=== PATIENT | female | born 2000 | race Caucasian/White ===

== ENCOUNTER 2023-11-04 12:44 | Outpatient (OUT) | payer OTHER, SELFPAY | END 2023-11-04 12:45 | disposition home or self-care (01) | PROVIDERS: PCP Nurse Practitioner Family; Visit Provider Nurse Practitioner Family | DX: R55 Syncope and collapse (principal) | CPT/HCPCS: 93242 ==

== ENCOUNTER 2024-01-26 08:59 | Outpatient (OUT) | payer OTHER, SELFPAY ==
--- NOTE | 2024-01-26 09:04 | CA_ITS ---
Patient Name: KEIKO WHITE MR#: [id number] : 2000 Exam Date: 01/26/2024 Ordering Doctor: ITZ WATERMAN M.D. ECHOCARDIOGRAM REPORT PROCEDURE: CA ECHO DOPPLER COMPLETE INDICATIONS: Palpitations, syncope COMPARISON: None. DESCRIPTION: COMPLETE ECHOCARDIOGRAM Real-time transthoracic echocardiography with 2D, M-mode, spectral and color flow Doppler performed. QUALITY: Technical quality was good. LEFT VENTRICLE: Normal chamber size. Normal left ventricular wall thickness. Global left ventricular systolic function is at the lower limits of normal. Increased trabeculations seen in the apex of the left ventricle. LV EF: Estimated left ventricular ejection fraction is 50-55 % DIASTOLIC: Normal diastolic function. ATRIAL SEPTUM: Appears intact. LEFT ATRIUM: Normal chamber size. RIGHT ATRIUM: Normal chamber size. RIGHT VENTRICLE: Normal chamber size. Normal right ventricular systolic function. TRICUSPID VALVE: Normal mobility and thickness. No stenosis with trivial regurgitation. No evidence of pulmonary hypertension. RVSP 26 mmHg MITRAL VALVE: Normal mobility and thickness. No evidence of mitral valve stenosis. There is no mitral annular calcification. Trivial mitral regurgitation. AORTIC VALVE: Normal trileaflet appearance. No visible sclerosis. Normal leaflet mobility. No evidence of aortic valve stenosis. AORTIC ROOT: Normal diameter and appearance. PULMONIC VALVE: Normal thickness and mobility. Normal with No regurgitation. PERICARDIUM: No evidence of pericardial effusion. IVC: Collapses with inspirations. Mildly dilated measuring 2.2 cm. PLEURA: CONCLUSION: 1. The left ventricle is normal in size with normal wall thickness. Systolic function appears to be at the lower limits of normal with LVEF estimated at 50 to 55%. Increased trabeculations are seen in the apex of the left ventricle. 2. Right ventricular size and systolic function. 3. No significant valvular dysfunction. 4. Normal diastolic function. 5. A cardiac MRI is recommended for further investigation. Adult Echocardiography Procedure Report Left Ventricle LVEDD (3.7 - 5.6 cm): 4.11 cm LVESD (2.2 - 4.0 cm): 2.97 cm LVIVS thickness (0.6 - 1.2 cm): 0.60 cm LVPW thickness (0.5 - 1.0 cm): 0.54 cm e': 0.20 m/s E - e': 3.71 LVOT Max Gradient: 2.26 mm[Hg] LVOT Area (cm2): 0.75 m/s Peak Velocity (LVOT): 0.75 m/s Mean Velocity (LVOT): 0.53 m/s LVOT Diameter 1.69 cm Left Ventricular Ejection Fraction: 50-55 % Left Atrium LA Volume Index (2D A2C): 20.65 ml/m2 Left Atrium Systolic Dimension: 2.22 cm Mitral Valve MV E to A Ratio: 1.69 Mitral Valve A-Wave Peak Velocity: 0.45 m/s Mitral Valve E-Wave Peak Velocity: 0.76 m/s Right Ventricle RV Internal Diastolic Dimension: 2.54 cm Aorta AO Root Diam: 2.08 cm Ascending Ao Diam: 1.86 cm Aortic Valve AoV Area (Peak Amarjit): 1.54 cm2, 1.54 cm2 AoV Area (VTI): 1.52 cm2, 1.52 cm2 Peak Velocity(Antegrade Flow): 1.09 m/s Peak Gradient(Antegrade Flow): 4.74 mm[Hg] Mean Velocity(Antegrade Flow): 0.77 m/s Mean Gradient(Antegrade Flow): 2.71 mm[Hg] Velocity Time Integral: 24.16 cm Tricuspid Valve Peak Velocity (Regurgitant Flow): 2.85 m/s, 1.87 m/s, 2.10 m/s Pulmonic Valve Peak Velocity: 0.70 m/s Peak Gradient: 1.93 mm[Hg] Right Atrium Right Atrium Systolic Pressure: 18.99 ml, 18.99 ml Dictated by: Dionisio Varma M.D. on 01/27/2024 at 10:21 Approved by: Dionisio Varma M.D. on 01/27/2024 at 10:27
--- OUTSIDE RECORDS SUMMARY | 2024-01-26 09:21 | XMS_ITS | CCD ---
Author Organization [facility] Care Team Providers Care Cement Handler Name Role Phone Vanessa Mckeon Unavailable TIANA, DR ARELLANO Attending Unavailable TIANA, DR ARELLANO Consulting Unavailable TIANA, DR ARELLANO Admitting Unavailable REQUEST, NONE LISTED Primary Care Unavaila alessandro OTOOLE, DR RON Shaikh Consulting Unavailable TIANA, DR ARELLANO Consulting Unavailable TIANA, DR ARELLANO Admitting Unavailable REQUEST, DR WEN LISTED Primary Care Unavaila alessandro MONTIEL, DR ARELLANO Attending Unavailable XIANG, DR RON Shaikh Consulting Unavailable ASHISH EISENBERG Referring Unavailable SERVICES, [facility] Primary Care ALEIDA Crump Attending Unavailable Allergies Allergy Classification Reported Allergen(s) Allergy Type Date of Onset Reaction(s) Facility (1 source) Melatonin; Translations: [MELATONIN] Drug Allergy 11-07-2021 [facility] Medications Current Medications Medication Drug Class(es) Dates Sig (Normalized) Sig (Original) predniSONE 20 mg oral tablet (1 source) Start: 08-15-2021 take 1 tablet by mouth every twelve hours predniSONE 20 MG 1 tablet Orally 2 times a day for 5 day(s) Aug, Active Completed/Discontinued Medications Medication Drug Class(es) Dates Sig (Normalized) Sig (Original) ondansetron 4 mg disintegrating oral tablet (1 source) Serotonin-3 Receptor Antagonist Start: 01-03-2020 take 1 tablet by mouth every eight hours as needed Ondansetron 4 MG 1 tablet on the tongue and allow to dissolve Orally every 8 hours as needed for 7 days Dec, Not-Taking triamcinolone acetonide 40 mg/ml injectable suspension (1 source) Corticosteroid Start: 08-15-2021 Kenalog-40 Aug, 40 mg Problems Active Problems Problem Classification Problem Date Documented Date Episodic/Chronic Abdominal pain (4 sources) Pelvic and perineal pain; Translations: [PELVIC AND PERINEAL PAIN] Onset: 11-08-2021 Episodic Cardiac dysrhythmias (1 source) Palpitations; Translations: [Palpitations] Onset: 07-17-2023 Episodic Contraceptive and procreative management (1 source) Presence of (intrauterine) contraceptive device; Translations: [PRESENCE IU CONTRACEPT DEVICE] Onset: 11-09-2021 Episodic Disorders usually diagnosed in infancy, childhood, or adolescence (1 source) Tic disorder; Translations: [Tic disorder, unspecified] Chronic Menstrual disorders (4 sources) Irregular menstruation, unspecified; Translations: [IRREGULAR MENSTRUATION UNSPECIFIED] Onset: 11-01-2021 Chronic Other nutritional; endocrine; and metabolic disorders (1 source) Adult failure to thrive; Translations: [Adult failure to thrive] Onset: 07-17-2023 Episodic Other nutritional; endocrine; and metabolic disorders (1 source) Underweight; Translations: [Underweight] Onset: 07-17-2023 Episodic Syncope (1 source) Syncope and collapse; Translations: [Syncope and collapse] Onset: 07-17-2023 Episodic Past or Other Problems Problem Classification Problem Date Documented Da te Episodic/Chronic Allergic reactions (1 source) Allergic contact dermatitis due to plants, except food Onset: 08-15-2021 Resolved: 08-15-2021 Episodic Results Test Name Value Interpretation Reference Range Facility Office Visiton 12-26-2023 Follow-up visit [id number] Alexis Soria 2000 F Date Provider Department Center 12/26/2023 Benigno-ALEIDA BRUMFIELD CRISTIANA Durbin [facility] Family History Problem Relation Age of Onset No Known Problems Father Family Status - Relation Status Age at Father Level of Service:06145 MI OFFICE/OUTPATIENT NEW MODERATE MDM 45 MINUTES Normal [facility] .Thyroglobulin by IMAon 09-14 Thyroglobulin [Mass/Vol] 38.3 ng/mL Invalid Interpretation Code 1.5-38.[address] [facility] Comment on above: Result Comment: Acco rding to the National Academy of Clinical Biochemistry, the reference interval for Thyroglobulin (TG) should be related to euthyroid patients and not for patients who underwent thyroidectomy. TG reference intervals for these patients depend on the residual mass of the thyroid tissue left after surgery. Establishing a post-operative baseline is recommended. The assay limit of quantitation is 0.1 ng/mL Thyroglobulin measured by [employer] Immunometric Assay Performed at: [address] [id number] PhD Terry Lopez Performed By: #### 7 [id number] #### [facility] [address] [place] [address] Estradiolon 09-26-2023 E2 [Mass/Vol] 108.0 pg/mL Invalid Interpretation Code [facility] Comment on above: Result Comment: Adul t Female Range Follicular phase 12.5 - 166.0 Ovulation phase 85.8 - 498.0 Luteal phase 43.8 - 211.0 Postmenopausal <6.0 - 54.7 1st trimester 215.0 - >4300.0 Shikha ECLIA methodology Performed at: [address] [id number] PhD Terry Lopez Performed By: #### 2 [id number] #### [facility] [address] [place] [address] FSH and LHon 09-26-2023 Follitropin Qn 3.1 m[IU]/mL Invalid Interpretation Code [facility] Comment on above: Result Comment: Adul t Female Range Follicular phase 3.5 - 12.5 Ovulation phase 4.7 - 21.5 Luteal phase 1.7 - 7.7 Postmenopausal 25.8 - 134.8 Performed at: [address] [id number] PhD Terry Lopez Performed By: #### 1 [id number] #### [facility] [address] [place] [address] Lutropin Qn 1.6 m[IU]/mL Invalid Interpretation Code [facility] Comment on above: Result Comment: Adul t Female Range Follicular phase 2.4 - 12.6 Ovulation phase 14.0 - 95.6 Luteal phase 1.0 - 11.4 Postmenopausal 7.7 - 58.5 Performed By: #### 1 [id number] #### [facility] [address] [place] [address] T3 Totalon 09-26-2023 T3 [Mass/Vol] 98 ng/dL Invalid Interpretation Code 71-[address] [facility] Comment on above: Result Comment: Perf ormed at: [employer] [id number] PhD Terry Lopez Performed By: #### 1 [id number] #### [facility] [address] [place] [address] TgAb+Thyroglobulinon 024 Thyroglobulin Ab Qn [IU]/mL Invalid Interpretation Code 0.0-0.[address] [facility] Comment on above: Result Comment: Thyr oglobulin Antibody measured by [employer] Methodology It should be noted that the presence of thyroglobulin antibodies may not be pathogenic nor diagnostic, especially at very low levels. The assay ambulance operations supervisor has found that four percent of individuals without evidence of thyroid disease or autoimmunity will have positive TgAb levels up to 4 IU/mL. Performed at: [employer] [address] [id number] PhD Terry Lopez Performed By: #### 7 [id number] #### [facility] [address] [place] [address] Thyroid Perox.tpo Abon 09-25 TPO Ab Qn [IU]/mL Invalid Interpretation Code 0-[address] [facility] Comment on above: Result Comment: Perf ormed at: [employer] [id number] PhD Terry Lopez Performed By: #### 1 [id number] #### [facility] [address] [place] [address] Thyrotropin Receptor Antibod y, Serumon 09-26-2023 TSH receptor Ab Qn (S) <1.10 Invalid Interpretation Code 0.00-1.[address] [facility] Comment on above: Result Comment: Perf ormed at: [address] [id number] MD Sunny Cottrell Performed By: #### 1 [id number] #### [facility] [address] [place] [address] C REACTIVE PROTEINon 024 CRP [Mass/Vol] mg/L Normal 0.000-0.744 [facility] Comment on above: Performed By: #### C BCA, CMP, 1987-07, THYR, 3052-08, 2131-11, HA1C #### [facility] ([id number]) [address], [address] [place] [address] CBC AND AUTO DIFFon 07-17-19 24 ABSOLUTE BASOPHIL 0.0 X10E9/L Normal 0.0-0.2 [facility] Comment on above: Performed By: #### C BCA, CMP, 1987-07, THYR, 3052-08, 2131-11, HA1C #### [facility] ([id number]) [address], [address] [place] [address] ABSOLUTE NEUTROPHIL 1.7 X10E9/L Normal 1.5-6.6 [facility] Comment on above: Performed By: #### C BCA, CMP, 1987-07, THYR, 3052-08, 2131-11, HA1C #### [facility] ([id number]) [address], [address] [place] [address] Basophils/100 WBC (Bld) 0.3 % Normal [facility] Comment on above: Performed By: #### C BCA, CMP, 1987-07, THYR, 3052-08, 2131-11, HA1C #### [facility] ([id number]) [address], [address] [place] [address] Eosinophils (Bld) [#/Vol] 0.2 10*3/uL Normal 0.0-0.4 [facility] Comment on above: Performed By: #### C BCA, CMP, 1987-07, THYR, 3052-08, 2131-11, HA1C #### [facility] ([id number]) [address], [address] [place] [address] Eosinophils/100 WBC (Bld) 4.7 % Normal [facility] Comment on above: Performed By: #### C MARGOT MARCOS, 1987-07, THYR, 3052-08, 2131-11, HA1C #### [facility] ([id number]) [address], [facility] [address] [place] [address] Erythrocyte distribution width (RBC) [Ratio] 13.0 % Normal 11.5-15.0 [facility] Comment on above: Performed By: #### C MARGOT MARCOS, 1987-07, THYR, 3052-08, 2131-11, HA1C #### [facility] ([id number]) [address], [facility] [address] [place] [address] Hematocrit (Bld) [Volume fraction] 36.4 % Normal 35-47 [facility] Comment on above: Performed By: #### C MARGOT MARCOS, 1987-07, THYR, 3052-08, 2131-11, HAElizabeth #### [facility] ([id number]) [address], [facility] [address] [place] [address] Hemoglobin (Bld) [Mass/Vol] 12.5 g/dL Normal 11.7-15.5 [facility] Comment on above: Performed By: #### C MARGOT MARCOS, 1987-07, THYR, 3052-08, 2131-11, HAElizabeth #### [facility] ([id number]) [address] [address] [place] [address] Lymphocytes (Bld) [#/Vol] 2.2 10*3/uL Normal 1.0-3.5 [facility] Comment on above: Performed By: #### C PRITI CMP, 1987-07, THYR, 3052-08, 2131-11, HA1C #### [facility] ([id number]) [address] [address] [place] [address] Lymphocytes/100 WBC (Bld) 46.9 % Normal [facility] Comment on above: Performed By: #### C BCA, CMP, 1987-07, THYR, 3052-08, 2131-11, HA1C #### [facility] ([id number]) [address], [address] [place] [address] MCH (RBC) [Entitic mass] 30.3 pg Normal 27-34 [facility] Comment on above: Performed By: #### C BCA, CMP, 1987-07, THYR, 3052-08, 2131-11, HA1C #### [facility] ([id number]) [address], [address] [place] [address] MCHC (RBC) [Mass/Vol] 34.4 g/dL Normal 32-36 [facility] Comment on above: Performed By: #### C PRITI, CMP, 1987-07, THYR, 3052-08, 2131-11, HA1C #### [facility] ([id number]) [address], [address] [place] [address] MCV (RBC) [Entitic vol] 88 fL Normal 80-100 [facility] Comment on above: Performed By: #### C PRITI, CMP, 1987-07, THYR, 3052-08, 2131-11, HAElizabeth #### [facility] ([id number]) [address], [address] [place] [address] Monocytes (Bld) [#/Vol] 0.6 10*3/uL Normal 0-0.9 [facility] Comment on above: Performed By: #### C BCA, CMP, 1987-07, THYR, 3052-08, 2131-11, HA1C #### [facility] ([id number]) [address], [address] [place] [address] Monocytes/100 WBC (Bld) 11.7 % Normal [facility] Comment on above: Performed By: #### C BCA, CMP, 1987-07, THYR, 3052-08, 2131-11, HA1C #### [facility] ([id number]) [address], [address] [place] [address] Neutrophils/100 WBC (Bld) 36.4 % Normal [facility] Comment on above: Performed By: #### C BCA, CMP, 1987-07, THYR, 3052-08, 2131-11, HA1C #### [facility] ([id number]) [address], [address] [place] [address] Platelet mean volume (Bld) [Entitic vol] 9.2 fL Normal 7-12 [facility] Comment on above: Performed By: #### C BCA, CMP, 1987-07, THYR, 3052-08, 2131-11, HA1C #### [facility] ([id number]) [address], [address] [place] [address] Platelets (Bld) [#/Vol] 215 10*3/uL Normal 150-450 [facility] Comment on above: Performed By: #### C BCA, CMP, 1987-07, THYR, 3052-08, 2131-11, HA1C #### [facility] ([id number]) [address], [address] [place] [address] RBC COUNT 4.13 X10E12/L Normal 3.80-5.20 [facility] Comment on above: Performed By: #### C BCA, CMP, 1987-07, THYR, 3052-08, 2131-11, HA1C #### [facility] ([id number]) [address], [address] [place] [address] WBC (Bld) [#/Vol] 4.7 10*3/uL Normal 4.0-11.0 [facility] Comment on above: Performed By: #### C BCA, CMP, 1987-07, THYR, 3052-08, 2131-11, HA1C #### [facility] ([id number]) [address], [address] [place] [address] COMPREHENSIVE METABOLIC PANE Wan 07-17-2023 Albumin [Mass/Vol] 4.6 g/dL Normal 3.2-5.3 [facility] Comment on above: Performed By: #### C BCA, CMP, 1987-07, THYR, 3052-08, 2131-11, HA1C #### [facility] ([id number]) [address], [address] [place] [address] ALP [Catalytic activity/Vol] 44 U/L Normal 39-130 [facility] Comment on above: Performed By: #### C BCA, CMP, 1987-07, THYR, 3052-08, 2131-11, HA1C #### [facility] ([id number]) [address], [address] [place] [address] ALT [Catalytic activity/Vol] 10 U/L Normal 0-31 [facility] Comment on above: Performed By: #### C BCA, CMP, 1987-07, THYR, 3052-08, 2131-11, HA1C #### [facility] ([id number]) [address], [address] [place] [address] Anion gap [Moles/Vol] 10 mmol/L Normal 5-15 [facility] Comment on above: Performed By: #### C BCA, CMP, 1987-07, THYR, 3052-08, 2131-11, HA1C #### [facility] ([id number]) [address], [address] [place] [address] AST [Catalytic activity/Vol] 17 U/L Normal 0-41 [facility] Comment on above: Performed By: #### C BCA, CMP, 1987-07, THYR, 3052-08, 2131-11, HA1C #### [facility] ([id number]) [address], [address] [place] [address] Bilirubin [Mass/Vol] 0.5 mg/dL Normal 0.3-1.2 [facility] Comment on above: Performed By: #### C BCA, CMP, 1987-07, THYR, 3052-08, 2131-11, HA1C #### [facility] ([id number]) [address], [address] [place] [address] Calcium [Mass/Vol] 9.2 mg/dL Normal 8.5-10.5 [facility] Comment on above: Performed By: #### C BCA, CMP, 1987-07, THYR, 3052-08, 2131-11, HA1C #### [facility] ([id number]) [address], [address] [place] [address] Chloride [Moles/Vol] 104 mmol/L Normal 98-109 [facility] Comment on above: Performed By: #### C BCA, CMP, 1987-07, THYR, 3052-08, 2131-11, HA1C #### [facility] ([id number]) [address], [address] [place] [address] CO2 [Moles/Vol] 27 mmol/L Normal 22-32 [facility] Comment on above: Performed By: #### C BCA, CMP, 1987-07, THYR, 3052-08, 2131-11, HA1C #### [facility] ([id number]) [address], [address] [place] [address] Creatinine [Mass/Vol] 0.71 mg/dL Normal 0.40-1.00 [facility] Comment on above: Result Comment: METH OD TRACEABLE TO IDMS STANDARD Performed By: #### C BCA, CMP, 1987-07, THYR, 3052-08, 2131-11, HA1C #### [facility] ([id number]) [address], [address] [place] [address] eGFR (CKD-EPI) NON-RACE DEPENDENT >90 Normal >59 [facility] Comment on above: Result Comment: Reported eGFR is based on the CKD-EPI 2020 equation that does not use a race coefficient. Performed By: #### C PRITI, CMP, 1987-07, THYR, 3052-08, 2131-11, HA1C #### [facility] ([id number]) [address], [address] [place] [address] Glucose [Mass/Vol] 86 mg/dL Normal 65-99 [facility] Comment on above: Performed By: #### C BCA, CMP, 1987-07, THYR, 3052-08, 2131-11, HA1C #### [facility] ([id number]) [address], [address] [place] [address] Potassium [Moles/Vol] 3.9 mmol/L Normal 3.5-5.0 [facility] Comment on above: Performed By: #### C BCA, CMP, 1987-07, THYR, 3052-08, 2131-11, HA1C #### [facility] ([id number]) [address], [address] [place] [address] Protein [Mass/Vol] 7.2 g/dL Normal 6.0-8.0 [facility] Comment on above: Performed By: #### C BCA, CMP, 1987-07, THYR, 3052-08, 2131-11, HA1C #### [facility] ([id number]) [address], [address] [place] [address] Sodium [Moles/Vol] 141 mmol/L Normal 134-146 [facility] Comment on above: Performed By: #### C BCA, CMP, 1987-07, THYR, 3052-08, 2131-11, HA1C #### [facility] ([id number]) [address], [address] [place] [address] Urea nitrogen [Mass/Vol] 12 mg/dL Normal 5-23 [facility] Comment on above: Performed By: #### C BCA, CMP, 1987-07, THYR, 3052-08, 2131-11, HA1C #### [facility] ([id number]) [address], [address] [place] [address] Cortisol [Mass/Vol]on 2023 CORTISOL 21.1 ug/dL Normal [facility] Comment on above: Result Comment: Due to the diurnal variation of cortisol levels in normal subjects, all cortisol measurements should be referenced to the time of day of sample collection. AM Cortisol Age>=6 6.7-22.4 ug/dL PM Cortisol Age>=6 <10 ug/dL Performed By: #### 2 143-6 #### [facility] ([id number]) [address] [place] [address] HGB A1C (GLYCO-HGB)on 2023 Glucose [Mass/Vol] 103 mg/dL Normal [facility] Comment on above: Performed By: #### C MARGOT MARCOS, 1987-07, THYR, 3052-08, 2131-11, HA1C #### [facility] ([id number]) [address], [facility] [address] [place] [address] HbA1c (Bld) [Mass fraction] 5.2 % Normal 4.4-5.6 [facility] Comment on above: Result Comment: NOTE ADA Guidelines Result HgbA1c Normal : less than 5.7 % Prediabetes : 5.7 % to 6.4 % Diabetes : > 6.4 % Use with caution in patients with abnormal hemoglobin variants as the half-life of red blood cells and in vivo glycation rates are affected. Performed By: #### C MARGOT MARCOS, 1987-07, THYR, 3052-08, 2131-11, HA1C #### [facility] ([id number]) [address], [address] [place] [address] Insulin Qnon 07-17-2023 INSULIN 2.76 uIU/mL Normal 1.00-23.00 [facility] Comment on above: Result Comment: Ref. range is for FASTING NON-DIABETIC POPULATION. Performed By: #### 2 0448-7 #### [facility] ([id number]) [address], [address] [place] [address] T3 [Mass/Vol]on 07-17-2023 TOTAL T3 (TT3) 173 ng/dL Normal 87-178 [facility] Comment on above: Performed By: #### C BCA, CMP, 1987-07, THYR, 3052-08, 2131-11, HA1C #### [facility] ([id number]) [address] [place] [address] THYROID PROFILEon 07-17-2023 Free T4 [Mass/Vol] 0.65 ng/dL Normal 0.61-1.60 [facility] Comment on above: Performed By: #### C BCA, CMP, 1987-07, THYR, 3052-08, 2131-11, HA1C #### [facility] ([id number]) [address] [facility] [address] [place] [address] TSH 4.57 uIU/mL Normal 0.49-4.67 [facility] Comment on above: Performed By: #### C BCA, CMP, 1987-07, THYR, 3052-08, 2131-11, HA1C #### [facility] ([id number]) [address], [address] [place] [address] VITAMIN B12on 07-17-2023 Cobalamin (Vitamin B12) [Mass/Vol] 404 pg/mL Normal 180-914 [facility] Comment on above: Performed By: #### C BCA, CMP, 1987-07, THYR, 3052-08, 2131-11, HA1C #### [facility] ([id number]) [address] [facility] [address] [place] [address] US PELVIS TRANSVAGon 022 US PELVIS TRANSVAG EXAMINATION: US PELVIS TRANSVAG HISTORY: Pelvic and perineal pain ; pelvic pain, nausea, vomiting since IUD placement yesterday COMPARISON: Ultrasound pelvis 11/01/2021 TECHNIQUE: Transabdominal and transvaginal sonographic examination. FINDINGS: UTERUS: Normal size and appearance. Uterus size: 8.1 x 3.0 x 4.2 cm ENDOMETRIUM: Thin endometrium with IUD within endometrial cavity. Endometrial thickness: 2 mm RIGHT OVARY: Normal size and appearance. Duplex Doppler demonstrates normal waveform and flow; resistive index 0.5. Ovary size: 2.8 x 1.4 x 2.9 cm LEFT OVARY: Normal size and appearance. Duplex Doppler demonstrates normal waveform and flow; resistive index 0.5. Ovary size: 2.5 x 1.3 x 2.7 cm CUL-DE-SAC: Unremarkable. No significant free fluid. BLADDER: Unremarkable. OTHER: None. IMPRESSION: 1. IUD appears normally positioned within the endometrial cavity. 2. No acute or suspicious findings to account for patient's symptoms. Electronically authenticated by: RON OTOOLE Date: 2021-11-08 18:19 Normal [facility] HCG-BETA SUBUNIT QUANTon hCG,Beta Subunit,Qnt,Serum <1 Normal [facility] Comment on above: Result Comment: Fema le (Non-) 0 - 5 (Postmenopausal) 0 - 8 . Female () Weeks of Gestation 3 6 - 71 4 10 - 750 5 466 - 9985 6 168 - 08054 7 3099 -478228 8 69378 -[phone] 9 89370 -640951 10 80818 -553659 12 60648 -243373 14 31662 - 25250 15 95726 - 96752 16 1242 - 33269 17 6405 - 78297 18 8831 - 29372 Shikha ECLIA methodology Performed By: #### H CGSUB #### [facility] [address] [address] [address] Pam Lam US PELVIS AND TRANSVAGon 08- 19-2022 US PELVIS AND TRANSVAG EXAMINATION: US PELVIS AND TRANSVAG HISTORY: Irregular periods COMPARISON: No relevant comparison available. TECHNIQUE: Transabdominal and transvaginal sonographic examination. FINDINGS: UTERUS: Normal size and appearance. Uterus size: 7.9 x 4.8 x 3.0 cm ENDOMETRIUM: Normal homogeneous appearance. Endometrial thickness: 4 mm RIGHT OVARY: Normal size and appearance. Duplex Doppler demonstrates normal waveform and flow; resistive index 0.5. Ovary size: 2.7 x 2.3 x 1.6 cm LEFT OVARY: Normal size and appearance. Duplex Doppler demonstrates normal waveform and flow; resistive index 0.5. Ovary size: 2.7 x 2.1 x 1.5 cm CUL-DE-SAC: Unremarkable. No significant free fluid. BLADDER: Unremarkable. OTHER: None. IMPRESSION: 1. Normal pelvic ultrasound. Electronically authenticated by: RON OTOOLE Date: 2021-11-02 06:26 Normal [facility] CBC AUTO DIFFon 11-01-2021 BASO # 0.0 103/ul Normal 0.0-0.1 [facility] Comment on above: Performed By: #### C BC #### [facility] [address] [place] [address] Dr. Pam Lam Basophils/100 WBC (Bld) 0.4 % Normal 0.2-2.0 [facility] Comment on above: Performed By: #### C BC #### [facility] [address] [place] [address] Dr. Pam Lam EO # 0.1 103/ul Normal 0.0-0.7 [facility] Comment on above: Performed By: #### C BC #### [facility] [address] [place] [address] Dr. Pam Lam Eosinophils/100 WBC (Bld) 3.1 % Normal 0.9-7.0 [facility] Comment on above: Performed By: #### C BC #### [facility] [address] [place] [address] Dr. Pam Lam Erythrocyte distribution width (RBC) [Ratio] 11.9 % Normal 11.0-15.0 [facility] Comment on above: Performed By: #### C BC #### [facility] [address] [place] [address] Dr. Pam Lam Hematocrit (Bld) [Volume fraction] 37.5 % Normal 36.0-48.0 [facility] Comment on above: Performed By: #### C BC #### [facility] [address] [place] [address] Dr. Pam Lam Hemoglobin (Bld) [Mass/Vol] 12.9 g/dL Normal 12.0-16.0 [facility] Comment on above: Performed By: #### C BC #### [facility] [address] [place] [address] Dr. Pam Lam IG # 0.01 10e3/ul Normal 0.00-0.03 [facility] Comment on above: Performed By: #### C BC #### [facility] [address] [place] [address] Dr. Pam Lam IG % 0.2 % Normal 0.0-0.5 [facility] Comment on above: Performed By: #### C BC #### [facility] [address] [place] [address] Dr. Pam Lam LYMPH # 1.6 103/ul Normal 1.2-3.8 [facility] Comment on above: Performed By: #### C BC #### [facility] [address] [place] [address] Dr. Pam Lam Lymphocytes/100 WBC (Bld) 36.1 % Normal 20.5-60.0 [facility] Comment on above: Performed By: #### C BC #### [facility] [address] [place] [address] Dr. Pam Lam MANUAL DIFF REQ NO Normal [facility] Comment on above: Performed By: #### C BC #### [facility] [address] [place] [address] Dr. Pam Lam MCH (RBC) [Entitic mass] 29.9 pg Normal 26.7-34.0 [facility] Comment on above: Performed By: #### C BC #### [facility] [address] [place] [address] Dr. Pam Lam MCHC (RBC) [Mass/Vol] 34.4 g/dL Normal 29.9-35.2 [facility] Comment on above: Performed By: #### C BC #### [facility] [address] [address] [address] Pam Lam MCV (RBC) [Entitic vol] 86.8 fL Normal 81.0-99.0 [facility] Comment on above: Performed By: #### C BC #### [facility] [address] [place] [address] Dr. Pam Lam MONO # 0.6 103/ul Normal 0.3-0.8 [facility] Comment on above: Performed By: #### C BC #### [facility] [address] [place] [address] Dr. Pam Lam Monocytes/100 WBC (Bld) 13.1 % Critically high 1.7-12.0 [facility] Comment on above: Performed By: #### C BC #### [facility] [address] [place] [address] Dr. Pam Lam NEUT # 2.1 103/ul Normal 1.4-6.5 [facility] Comment on above: Performed By: #### C BC #### [facility] [address] [place] [address] Dr. Pam Lam Neutrophils/100 WBC (Bld) 47.1 % Normal 43.0-75.0 [facility] Comment on above: Performed By: #### C BC #### [facility] [address] [place] [address] Dr. Pam Lam Platelet mean volume (Bld) [Entitic vol] 10.4 fL Normal 9.5-13.5 [facility] Comment on above: Performed By: #### C BC #### [facility] [address] [place] [address] Dr. Pam Lam PLT 186 103/ul Normal 150-450 [facility] Comment on above: Performed By: #### C BC #### [facility] [address] [place] [address] Dr. Pam Lam RBC 4.32 106/ul Normal 4.20-5.40 [facility] Comment on above: Performed By: #### C BC #### [facility] [address] [place] [address] Dr. Pam Lam WBC 4.5 103/ul Normal 4.0-11.0 [facility] Comment on above: Performed By: #### C BC #### [facility] [address] [place] [address] Dr. Pam Lam PROTIMEon 11-01-2021 INR Coag (PPP) [Relative time] 1.07 {INR} Normal [facility] Comment on above: Performed By: #### P T, PTT #### [facility] [address] [place] [address] Dr. Pam Lam INR GUIDELINES SEE BELOW Normal [facility] Comment on above: Result Comment: IRIS RED INR: 2.0 - 3.0 CONDITIONS NOT LISTED BELOW 2.5 - 3.5 FOR PROSTHETIC HEART VALVE REPLACEMENT 2.5 - 3.5 RECURRENT THROMBOSIS Performed By: #### P T, PTT #### [facility] [address] [place] [address] Dr. Pam Lam PT Coag (PPP) [Time] 11.5 s Normal 9.0-11.6 [facility] Comment on above: Performed By: #### P T, PTT #### [facility] [address] [place] [address] Dr. Pam Lam PTTon 11-01-2021 aPTT Coag (Bld) [Time] 29.1 s Normal 22.3-36.2 [facility] Comment on above: Performed By: #### P T, PTT #### [facility] [address] [place] [address] Dr. Pam Lam TSHon 11-01-2021 TSH 1.282 uIU/mL Normal 0.516-4.130 [facility] Comment on above: Performed By: #### T SH #### [facility] [address] [place] [address] Dr. Pam Lam Vital Signs Date Time Vital Sign Value Performing Clinician Facility 08-15-2021 10:45-0400 Body height 157.48 cm Vanessa Linda Other [facility] Other 08-15-2021 10:45-0400 Body mass index (BMI) [Ratio] 15.36 kg/m2 Vanessa Kingmond Other [facility] Other 08-15-2021 10:45-0400 Body temperature 99.6 [degF] Vanessa Kingmond Other [facility] Other 08-15-2021 10:45-0400 Body weight 38.1 kg Vanessa Kingmond Other [facility] Other 08-15-2021 10:45-0400 Respiratory rate 18 /min Vanessa Kingmond Other [facility] Other 08-15-2021 10:45-0400 SaO2% (BldA) [Mass fraction] 98 % Vanessa Linda Other [facility] Other Encounters Encounter Date Encounter Type Care Provider Facility Start: 12-26-2023 End: 12-26-2023 ambulatory [facility] Start: 07-17-2023 End: 07-18-[address] [facility] Start: 11-08-2021 End: 11-09-[address] EILEEN MONTIEL Facility:[facility] Start: 11-01-2021 End: 11-02-[address] EILEEN MONTIEL Facility:[facility] Start: 08-15-2021 End: 08-15-2021 ambulatory Vanessa Mckeon Other [facility] Start: 08-15-2021 Office outpatient visit 15 minutes Vanessa Mckeon [facility] Payers Date Payer Category Payer Unknown [id number] [id number] 2001 Unknown [id number] 2001 Unknown [id number] 1959 Private Health Insurance [id number] 1958 Unknown [id number] Social History Date Type Detail Facility Unknown if ever smoked [facility] Other Sex Assigned At Sex Assigned At Bir th [facility] Other Progress note 12-26-2023 Note Date & Type Note Facility 12-26-2023 Note Cardiology Clinic No te Chief Complaint: Palpitations HPI: Alexis Soria is a 23 y.o. female who has no significant past cardiac history. Patient was referred to cardiology due to symptoms of palpitations and near syncope/syncope. Patient reports that this has been ongoing for years. However, she states that this has worsened recently. Patient reports feeling palpitations, followed by near syncope. She does state that she has syncopized in the past and has hit her head. This has been sometime ago. No recent syncope. Holter monitor was performed and did not demonstrate any sustained arrhythmias. Patient denies any additional cardiac complaints or concerns. Denies any chest pain or shortness of breath. No lower extreme edema, orthopnea, paroxysmal nocturnal dyspnea. No family history of pacemaker or ICD. No family history of sudden cardiac . Patient denies any previous history of CVA, PVD, DM, HTN, Depressed LVEF, and CAD. Patient drinks 1 to 216 ounce sodas per day. She has not noticed any association with of her symptoms with caffeine. She does vape both nicotine and smoke marijuana on occasion. She has not noticed any association between this and her symptoms. She did notice 1 time after drinking several drinks that she felt the palpitations and felt like she was going to pass out. She has not been drinking any alcohol since that time. ROS 10 point ROS is performed and is negative unless otherwise specified in HPI Past Medical History She has no past medical history on file. Surgical History She has no past surgical history on file. Social History She reports that she has never smoked. She uses smokeless tobacco. She reports that she does not drink alcohol. No history on file for drug use. Family History Family History Problem Relation Name Age of Onset No Known Problems Father Medications Current Outpatient Medications on File Prior to Visit Medication Sig Dispense Refill FLUoxetine (PROzac) 10 mg capsule 10 mg. No current facility-administered medications on file prior to visit. Allergies Patient has no known allergies. Physical Exam VITAL SIGNS: BP 105/71 Pulse 78 Ht 1.575 m (5' 2 ) Wt 38.1 kg (84 lb) SpO2 96% BMI 15.36 kg/m??? Constitutional: Well developed, Well nourished, No acute distress, Non-toxic appearance. HENT: Normocephalic, Atraumatic, Bilateral external ears have normal appearance, Nose appears normal, nares are patent. Eyes: PERRLA, EOMI, Conjunctiva normal, No discharge. Neck: Normal range of motion, No tenderness, Supple, No stridor. No cervical lymphadenopathy noted. Cardiovascular: Normal heart rate, Normal rhythm, No murmurs, No rubs, No gallops. Thorax & Lungs: Normal breath sounds, No respiratory distress, No wheezing, No chest tenderness to palpation. Abdomen: Bowel sounds normal, Soft, Nontender, No masses, No pulsatile masses. Skin: Warm, Dry, No erythema, No rash. Back: No tenderness, No CVA tenderness. Extremities: Intact distal pulses, No edema, No tenderness, No cyanosis, No clubbing. Musculoskeletal: Grossly normal strength in extremities Neurologic: Alert & oriented x 3, no gross focal neurological deficits Psychiatric: Affect normal, Judgment normal, Mood normal. EKG results: No results found for this or any previous visit (from the past 4464 hour(s)). Echo results: No echocardiogram results found for the past 12 months Radiology: No image results found. Assessment/Plan: Alexis Soria is a 23 y.o. female with Syncope, unspecified syncope type Palpitations Given history of frequent palpitations, and no episodes during her Holter monitor as per her report, we will proceed with 30-day event monitor to rule out any sustained arrhythmias. Will obtain echocardiogram to assess LVEF, regional wall motion, valvular function, and to rule out any structural abnormalities. Patient instructed to limit caffeine, avoid alcohol intake, and avoid nicotine/marijuana usage. She voices understanding. optimize medical management Aggressive risk factor modification Plan of care discussed with patient. All questions were answered. Patient voices understanding and is agreeable with current plan. Patient was educated on red flag symptoms. Strict return precautions were provided. Patient verbalizes understanding Follow-up in cardiology clinic in 3 months, or sooner as needed Thank you for allowing us to participate in the care of your patient. Please do not hesitate to contact cardiology with any questions or concerns. Aleida Brumfield MD Interventional Cardiology [facility] Evaluation note 08-15-2021 Note Date & Type Note Facility 08-15-2021 Evaluation note Encounter Date Diagnosis Assessment Notes Aug, Poison harriett dermatitis (ICD-10 - L23.7) Drink plenty fluids, get plenty of rest. Take the prednisone as prescribed until gone. Continue to use the calamine lotion and take Benadryl for itching. Wash your bedding and any clothing that you have been wearing for the last couple of days. Follow-up with your family physician if no improvement in 2 to 3 days [facility] Other History general Narrative - Reported Note Date & Type Note Facility History general Narrative - Reported Type Medical History Seasonal allergies Hospitalization History rsv [facility] Other Summary Purpose Family History No Family History Records FoundNo Family History Records FoundNo Family History Records FoundNo Family History Records FoundNo Family History Records FoundNo Family History Records FoundNo Family History Records FoundNo Family History Records FoundNo Family History Records FoundNo Family History Records Found Advance Directives No Advanced Directives Records FoundNo Advanced Directives Records FoundNo Advanced Directives Records FoundNo Advanced Directives Records FoundNo Advanced Directives Records FoundNo Advanced Directives Records FoundNo Advanced Directives Records FoundNo Advanced Directives Records FoundNo Advanced Directives Records FoundNo Advanced Directives Records Found Additional Source Comments REASON FOR VISIT (unrecogniz ed section and content) RASH, POS POISON HARRIETT INFORMATION SOURCE (unrecogn ized section and content) DATE CREATED AUTHOR 2021 [facility] DATE CREATED AUTHOR AUTHOR'S ORGANIZ ATION 08/01/2023 [facility] DATE CREATED AUTHOR AUTHOR'S ORGANIZ ATION 10/02/2023 [facility] DATE CREATED AUTHOR AUTHOR'S ORGANIZ ATION 12/28/2023 [facility] FOR RECORDS PERTAINING TO PATIENTS WHO ARE OR HAVE BEEN ENROLLED IN A CHEMICAL DEPENDENCY/SUBSTANCEABUSE PROGRAM, SOME INFORMATION MAY BE OMITTED. This clinical summary was aggregated from multiple sources. Caution should be exercised in using it in the provision of clinical care. This summary normalizes information from multiple sources, and as a consequence, information in this document may materially change the coding, format and clinical context of patient data. In addition, data may be omitted in some cases. CLINICAL DECISIONS SHOULD BE BASED ON THE PRIMARY CLINICAL RECORDS. [employer] provides no warranty or guarantee of the accuracy or completeness of information in this document.
== END 2024-01-26 09:00 | disposition home or self-care (01) ==
LOC: CARD 08:59
PROVIDERS: PCP Nurse Practitioner Family; Visit Provider Internal Medicine Cardiovascular Disease
DX: R55 Syncope and collapse (principal); R00.2 Palpitations
CPT/HCPCS: 93306

== ENCOUNTER 2024-09-09 22:19 | Emergency (ER) | payer OTHER, SELFPAY ==
--- OUTSIDE RECORDS SUMMARY | 2007-11-19 12:45 | XMS_ITS | Continuity of Care Document ---
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 [address], [place], [id number], [place]. tel:[phone] Family History Family Member Type Diagnosis Age At Onset No Information Payers Payer name Insurance type Covered libertarian ID Authoriza tion(s) [employer] [facility] CI [id number] Social History Type Description Quantity Date Captured Comments Sex Female Smoking Status No Information Chief Complaint And Reason For Visit No Information Reason For Referral Reason For Referral No Information History Of Present Illness Encounter Date Complaint History Of Prese nt Illness No Information Functional Status Date Functional Assessmen t No Information Instructions Date Instruction Additional Infor mation No Information Assessments Type Assessment Date No Information Patient Care Teams Name Effective Dates (start - stop) Status Members No Information
--- OUTSIDE RECORDS SUMMARY | 2024-06-11 05:30 | XMS_ITS ---
Author Organization [facility] Address [address] [place] [address] Care Team Providers Care Oracle Solutions Architect Name Role Phone Rosio Mosher Primary Care Provider REASON FOR VISIT 1 month f/u Encounters Encounter Location Date Provider Diagnosis [address] [place] [address] 06/11/2024 Rosio Mosher Plan Of Treatment No Information Progress Notes * SCOTTY WHITEBHARATOB:2000 (23 yo F)Acc No.[id number]:06/11/2024 Progress Notes Patient: KEIKO KRISHNAMURTHY Provider: Adeline Mosher CNP :2000 A ge:23 Y S ex:Female Date:06/11/2024 Phone: Address:[address] [id number] Subjective: * Chief Complaints: * 1 . 1 month f/u. * Medical History: Objective: * Vitals: Assessment: Plan: * Treatment: * Images: * Electronic signature of BRANDY Monahan on 09/09/2024 at 10:25 PM EDT Sign off status: Pending * Provider: Adeline Mosher CNP Date: 06/11/2024 Generated for Printi ng/Faxing/eTransmitting on: 0 09/09/2024 10:25 PM EDT
[2024-09-09 22:25] VITALS: BP 110/65; PULSE 94; TEMP 37; O2SAT 97; BMI 15.3
--- OUTSIDE RECORDS SUMMARY | 2024-09-09 22:25 | XMS_ITS | Clinical Summary ---
Author Organization [facility] Address [address] [place] [address] Care Team Providers Care Apple Peeler Operator Name Role Phone Rosio Mosher DIRECTOR NETWORK DEVELOPMENT-C Primary Care Provider + Allergies Active Allergy Reactions Criticality Noted Date Comments Melatonin Unknown Low 11/07/2021 Pt states it 'makes her hyper'. Medications FLUoxetine (PROzac) 10 mg capsule 10 mg. 12/04/2023 Active desvenlafaxine (Pristiq) 50 mg 24 hr tablet Take 50 mg by mouth in the morning. 05/14/2024 Active desvenlafaxine succinate (Pristiq) 25 mg 24 hour tablet Take 1 tablet by mouth in the morning. 05/15/2024 Active Encounters Date Type Department Care Team Description 06/29/2024 9:20 AM EDT Office Visit [facility] [address] [place] [address] Sunshine Reed CNP Syncope and collapse (Primary Dx); Palpitations; Vasovagal syncope; Abnormal echocardiogram from Last 3 Months Family History Medical History Relation Name Comments No Known Problems Father Heart disease Maternal Grandfather mini heart attack Relation Name Status Comments Brother Alive Father Maternal Grandfather Mother Alive Sister Alive Social History Tobacco Use Types Packs/Day Years Used Date Smoking Tobacco: Every Day Cigarettes Smokeless Tobacco: Current Tobacco Cessation:Ready to Q uit: Not Asked; Counseling Given: Not Answered Comments:vapes Alcohol Use Standard Drinks/Week Comments Never 0 (1 standard drink = 0.6 oz pur e alcohol) Comments Unknown Sex and Gender Information Value Date Recorded Sex Assigned at Not on file Legal Sex Female 9:08 AM EDT Gender Identity Not on file Sexual Orientation Not on file Last Filed Vital Signs Vital Sign Reading Time Taken Comments Blood Pressure 95/67 06/29/2024 9:22 AM EDT Pulse 89 06/29/2024 9:22 AM EDT Temperature - - Respiratory Rate - - Oxygen Saturation 98% 06/29/2024 9:22 AM EDT Inhaled Oxygen Concentration - - Weight 39 kg (86 lb) 06/29/2024 9:22 AM EDT Height 157.5 cm (5' 2 ) 06/29/2024 9:22 AM EDT Body Mass Index 15.73 06/29/2024 9:22 AM EDT Plan of Treatment Upcoming Encounters Date Type Department Care Team (Late st Contact Info) Description 09/14/2024 11:00 AM EDT Office Visit [facility] [address] [place] [address] Sunshine Reed, EARTH MOVING TECHNICIAN [address] [place] [id number] Health Maintenance Due Date Last Done Comments Depression Screening 2013 Varicella Vaccines (1 of 2 - 13+ 2-dose series) 2014 HPV Vaccines (1 - 3-dose series) 2016 Meningococcal B Vaccine (1 o f 2 - Standard) 2017 Pneumococcal Vaccine: Pediat rics (0 to 5 Years) and At-Risk Patients (6 to 64 Years) (1 of 2 - PCV) 2020 Pap Smear 2022 Adult Tetanus 11/11/2023 COVID-19 Vaccine (1 - 2023-2 5 season) 2023 Influenza Vaccine (Season Ended) 2024 Zoster Vaccines (1 of 2) 11/11/2051 HIB Vaccines Aged Out No longer eligi ble based on patient's age to complete this topic IPV Vaccines Aged Out No longer eligi ble based on patient's age to complete this topic Meningococcal Vaccine Aged Out No flori ciera eligible based on patient's age to complete this topic Rotavirus Vaccines Aged Out No longer eligible based on patient's age to complete this topic Insurance [employer] [place] Care Teams Apple Peeler Operator Relationship Specialty Start Date End Date Rosio Mosher FNP-C [address] [place] [address] PCP - General 12/26/23
--- OUTSIDE RECORDS SUMMARY | 2024-09-09 22:25 | XMS_ITS | Clinical Summary ---
Author Organization [facility] Address [address] [place] [address] Care Team Providers Care Choir Teacher Name Role Phone Aleida Brumfield MD Unavailable [phone] Social History Tobacco Use Types Packs/Day Years Used Date Smoking Tobacco: Never Assessed Comments Unknown Sex and Gender Information Value Date Recorded Sex Assigned at Not on file Legal Sex Female 11:25 AM EST Gender Identity Not on file Sexual Orientation Not on file Plan of Treatment Health Maintenance Due Date Last Done Comments Peds To Adult Transition Initial Discussion 2013 Peds To Adult Transition Annual Assessment 11/11/2015 HPV Vaccine (1 - 3-dose series) 2016 Meningococcal B Vaccine (1 of 2 - Standard) 2017 Anxiety Screening 11/11/2019 Chlamydia Screening (18-24) 11/11/2019 Depression Screening 11/11/2019 GC (Gonorrhea) Screening (18-24) 11/11/2019 HIV Screening 11/11/2019 Hepatitis C Screening 11/11/2019 DTaP,Tdap,Td Vaccine (1 - Tdap) 2020 Hepatitis B Vaccine (1 of 3 - 19+ 3-dose series) 11/10 Cervical Cancer Screening 2022 Covid-19 Vaccine ( - season) 2023 Influenza Vaccine (Season Ended) 2024 Insurance (Home) [address] [place] [id number] [place] [employer] Care Teams Choir Teacher Relationship Specialty Start Date End Date Aleida Brumfield MD [address] [place] [phone] Referring Cardiology 02/18/24
--- OUTSIDE RECORDS SUMMARY | 2024-09-09 22:25 | XMS_ITS | Patient Health Record ---
Author Organization [employer] [facility] Serv[facility] es Address [address] [place] [address] Care Team Providers Care Electric Range Assembler Name Role Phone Rosio Eisenberg Primary Care Provider Allergies No Known Allergies Results Component Value Reference Range Notes Thyrotropin Receptor Antibod y, Serum Reviewed date:10/01/2023 12:21:06 PM Interpretation: Performing Lab: Notes/Report: Original Ordering Provider: [place] [address] [address] [facility] Laboratory THYROTROPIN RECEPTOR AB <1.10 0.00-1.75 Int._Un it/L Performed at: [facility] [id number] MD Sunny Cottrell Performing Lab see note UNK - [facility] Laboratory unless otherwise specified [address], [place] [address] Thyroid Perox.tpo Ab Reviewed date:10/01/2023 12:23:05 PM Interpretation: Performing Lab: Notes/Report: [facility] Laboratory [address] [place] [address] Original Ordering Provider: CANDE EISENBERG THYROPEROXIDASE AB <9 0-34 International_Unit/mL Performed at: [facility] [id number] PhD Terry Lopez Performing Lab see note UNK - [facility] Laboratory unless otherwise specified [address], [place] [address] TgAb+Thyroglobulin Reviewed date:10/01/2023 12:21:22 PM Interpretation: Performing Lab: Notes/Report: [facility] Laboratory [address] [place] [address] Original Ordering Provider: CANDE EISENBERG THYROGLOBULIN AB <1.0 0.0-0.9 International_Unit/mL Thyroglobulin Antibody measured by Freddy Stephenson Methodology It should be noted that the presence of thyroglobulin antibodies may not be pathogenic nor diagnostic, especially at very low levels. The assay window glass installer has found that four percent of individuals without evidence of thyroid disease or autoimmunity will have positive TgAb levels up to 4 IU/mL. Performed at: [address] [id number] PhD Terry Lopez Performing Lab see note UN - [facility] Laboratory unless otherwise specified [address] [place] [address] T4 & TSH Reviewed date:10/01/2023 12:20:57 PM Interpretation: Performing Lab: Notes/Report: Original Ordering Provider: [place] [address] [place] [address] Laboratory THYROXINE 7.2 4.6-9.1 microgram/dL THYROTROPIN 1.09 0.34-5.60 mcIU/mL [facility] unless otherwise specified [address] [place] [address] T3 Uptake Reviewed date:10/01/2023 12:21:40 PM Interpretation: Performing Lab: Notes/Report: [facility] [address] [place] [address] Original Ordering Provider: CANDE EISENBERG TRIIODOTHYRONINE RESIN UPTAK E (T3RU) 44.9 32.0-48.4 % Performing Lab see note UN - [facility] Laboratory unless otherwise specified [address] [place] [address] T3 Total Reviewed date:10/01/2023 12:22:38 PM Interpretation: Performing Lab: Notes/Report: [facility] [address] [place] [address] Original Ordering Provider: CANDE EISENBERG TRIIODOTHYRONINE 98 71-180 ng/dL Performed at: [address] [id number] PhD Terry Lopez Performing Lab see note [facility] Laboratory unless otherwise specified [address], [place] [address] FSH and LH Reviewed date:10/01/2023 12:23:05 PM Interpretation: Performing Lab: Notes/Report: [facility] [address] [place] [address] Original Ordering Provider: CANDE EISENBERG FOLLITROPIN 3.1 Adult Female Range Follicular phase 3.5 - 12.5 Ovulation phase 4.7 - 21.5 Luteal phase 1.7 - 7.7 Postmenopausal 25.8 - 134.8 Performed at: [address] [id number] PhD Terry Lopez LUTROPIN 1.6 Adult Female Range Follicular phase 2.4 - 12.6 Ovulation phase 14.0 - 95.6 Luteal phase 1.0 - 11.4 Postmenopausal 7.7 - 58.5 Performing Lab see note [facility] Laboratory unless otherwise specified [address] [place] [address] Estradiol Reviewed date:10/01/2023 12:22:55 PM Interpretation: Performing Lab: Notes/Report: [facility] [address] [place] [address] Original Ordering Provider: CANDE EISENBERG ESTRADIOL 108.0 Adult Female Range Follicular phase 12.5 - 166.0 Ovulation phase 85.8 - 498.0 Luteal phase 43.8 - 211.0 Postmenopausal <6.0 - 54.7 1st trimester 215.0 - >4300.0 Shikha ECLIA methodology Performed at: [address] [id number] PhD Terry Lopez Performing Lab see note [facility] Laboratory unless otherwise specified [address] [place] [address] .Thyroglobulin by JAYDEN Reviewed date:10/01/2023 12:22:23 PM Interpretation: Performing Lab: Notes/Report: [facility] [address] [place], [place] [id number] Original Ordering Provider: CANDE EISENBERG THYROGLOBULIN 38.3 1.5-38.5 ng/mL According to the National Academy of Clinical Biochemistry, the reference interval for Thyroglobulin (TG) should be related to euthyroid patients and not for patients who underwent thyroidectomy. TG reference intervals for these patients depend on the residual mass of the thyroid tissue left after surgery. Establishing a post-operative baseline is recommended. The assay limit of quantitation is 0.1 ng/mL Thyroglobulin measured by [employer] Immunometric Assay Performed at: [facility] [address] [id number] PhD Terry Lopez Performing Lab see note UNK - [facility] Laboratory unless otherwise specified [address] [place] [address] [place] holter monitor recording Reviewed date:12/24/2023 02:33:15 PM Interpretation: Performing Lab: Notes/Report: Reason For Referral Reason PT SEEN pt would l josue to see cardiology is Ramakrishna Diagnosis 1 Heart palpitations ( R00.2) Diagnosis 2 Near syncope (R55) Referral Organization [facility] Referring Provider First Name Rosio Referring Provider Last Name Nomi Referring Provider Speciality [facility] Referred Provider ., . Referred Provider Specialty Cardiology Referral Priority Routine Medications Medication SIG (Take, Route, Frequency, Duration) Notes Start Date End Date Status Desvenlafaxine Succinate ER 50 MG 1 tablet Orally Once a day; Duration: 30 days 05/14/2024 Active Social History Tobacco Use: Social History Observation Description Date Details (start date - stop date) Unknown Depression Screening (PHQ-9): Question Answer Notes Little interest or pleasure in doing things Yessica ral days Feeling down, depressed, or hopeless Several day s Trouble falling or staying asleep, or sleeping t oo much More than half the days Feeling tired or having little energy Several da ys Poor appetite or overeating Not at all Feeling bad about yourself-o r that you are a failure or have let yourself or your family down Several days Trouble concentrating on thi ngs, such as reading the newspaper or watching television Several days Moving or speaking so slowly that other people could have noticed. Or the opposite being so fidgety or restless that you have been moving around a lot more than usual Not at all Thoughts that you would be b afsaneh off , or of hurting yourself in some way Not at all Total Score 7 Intepretation Mild Depression AUDIT-C (Standard) Question Answer Notes Did you have a drink containing alcohol in the p ast year? No Points 0 Interpretation Negative Tobacco Control (Standard) Question Answer Notes Tobacco use: Uses tobacco in other forms OPIOID Risk Tool (2018 Edition) Question Answer Notes Family Hx Alcohol? No Family Hx Illegal Drugs? No Family Hx Rx Drugs? No Personal Hx Alcohol? No Personal Hx Illegal Drugs? No Personal Hx Rx Drugs? No Age between 16-45 years? Yes History of Preadolescent Sexual Abuse? No ADD, OCD, Bipolar, Schizophrenia? No Depression? No TOTAL SCORE 1 Risk Level for Opioid Use low Section Notes: Vapes Vapes Vapes Vapes Vapes Problems Problem Type SNOMED Code ICD Code Onset Dates Problem Status W/U Status Risk Notes Problem Tobacco user (073377730) Nicotine dependence, unspecified, uncomplicated (F17.200) Active confirmed Problem Menorrhagia with irregular cycle (N92.1) Active confirmed Problem Generalized anxiety disorder (43726379) Generalized anxiety disorder (F41.1) Active confirmed Problem JAMA (generalized anxiety disorder) (F41.1) Active confirmed Vital Signs Heart Rate 82 /min 06/17/2024 Temperature 98 degrees Fahrenheit 06/17/2024 Blood pressure diastolic 60 mm Hg 06/17/2024 Oximetry 95 % 06/17/2024 Height 62 in 06/17/2024 Blood pressure systolic 93 mm Hg 06/17/2024 Weight 97 lbs 06/17/2024 BMI 17.74 kg/m2 06/17/2024 Encounters Encounter Location Date Provider Diagnosis [facility] [address] [place] [address] 09/10/2023 Rosio Eisenberg [facility] [address] [place] [address] 09/22/2023 Rosio Nomi [facility] [address] [place] [address] 12/01/2023 Rosio Eisenberg Generalized anxiety disorder F41.1 [facility] [address] [place] [address] 12/17/[address] [facility] [address] [place] [address] 04/26/2024 Rosio Eisenberg Generalized anxiety disorder F41.1 [facility] [address] [place] [address] 10/30/2023 Rosio Eisenberg [facility] [address] [place] [address] 12/17/2023 Rosio Eisenberg [facility] [address] [place] [address] 09/22/2023 Rosio Eisenberg Unintended weight loss R63.4 ; Thyroid function test abnormal R94.6 ; Generalized anxiety disorder F41.1 ; Witnessed syncope R55 and Menorrhagia with irregular cycle N92.1 [facility] [address] [place] [address] 05/14/2024 Rosio Eisenberg JAMA (generalized anxiety disorder) F41.1 [facility] [address] [place] [address] 06/17/2024 Rosio Eisenberg Generalized anxiety disorder F41.1 [facility] [address] [place] [address] 10/23/2023 Rosio Eisenberg Unintended weight loss R63.4 ; Thyroid function test abnormal R94.6 ; Generalized anxiety disorder F41.1 ; Witnessed syncope R55 and Menorrhagia with irregular cycle N92.1 Assessments Encounter Date Diagnosis (ICD Code) Assessment Notes Treatment Notes Treatment Clinical Notes Section Notes 09/22/2023 Unintended weight loss (ICD-10 - R63.4) Patient continues to lose weight. DIscussed lab works and will further labs ordered. Recommend patient to remind herself to eat substantial snacks when she is unable to sit down down for meals and take time out to take care of herself 09/22/2023 Thyroid function test abnormal (ICD-10 - R94.6) Discussed results of labs and further labs ordered. 10/23/2023 Unintended weight loss (ICD-10 - R63.4) Discussed lab results today during appointment. Awaiting patient to have heart monitor completed. 12/01/2023 Generalized anxiety disorder (ICD-10 - F41.1) 04/26/2024 Generalized anxiety disorder (ICD-10 - F41.1) 05/14/2024 JAMA (generalized anxiety disorder) (ICD-10 - F41.1) Discussed treatment options today in office and will start a new medication daily and another medication that patient will be able to take as needed for her panic attacks. Discussed side effect include drowsiness and should try medications at home today before taking them at work. If patient has any feeling of self harm or thoughts of wanting to hurt themselves or someone else, please contact office, go to emergency room, or call mental health hotlines. Patient will follow up in 4 weeks to see how they are doing 06/17/2024 Generalized anxiety disorder (ICD-10 - F41.1) Increased medication as we discussed to see if this helps with symptoms. If no improvement in 4 weeks will put in consult 10/23/2023 Thyroid function test abnormal (ICD-10 - R94.6) Discussed results of labs and further labs ordered. 10/23/2023 Generalized anxiety disorder (ICD-10 - F41.1) Continue to take medication as we discussed during appointment 09/22/2023 Generalized anxiety disorder (ICD-10 - F41.1) Will start patient on a low dose of medication for treatment of acknowledged of anxiety. Pt will follow up in 3-4 weeks so we can discuss how medication is working. Recommend patient take medication in the morning. 09/22/2023 Witnessed syncope (ICD-10 - R55) classroom monitor order sent to [facility] 10/23/2023 Witnessed syncope (ICD-10 - R55) classroom monitor order sent to [facility] 10/23/2023 Menorrhagia with irregular cycle (ICD-10 - N92.1) Recommend patient keep menstrual journal so we know how long cycles are lasting since she has multiple a month 09/22/2023 Menorrhagia with irregular cycle (ICD-10 - N92.1) Further labs ordered for patient. Recommend patient keep menstrual journal so we know how long cycles are lasting since she has multiple a month 09/22/2023 Other Body Mass Index : Care Instructions material was published, Body Mass Index: Care Instructions material was printed 06/17/2024 Other Body Mass Index : Care Instructions material was published, Body Mass Index: Care Instructions material was printed Plan Of Treatment No Information Insurance Providers Payer Name Payer Address Payer Phone Subscriber Number Group Number Insured Name Patient Relationship to Insured Coverage Start Date Coverage End Date [facility] [address] [place] [address] [id number] KEIKO WHITE Self - patient is the insured 4 Secondary [place] Medicaid [address] [address] [place] [address] [id number] KEIKO WHITE Self - patient is the insured 3 [employer] [facility] [address] [place] [address] [id number] KEIKO WHITE Self - patient is the insured 3 Medical (General) History Medical History History ICD Code anxiety
--- OUTSIDE RECORDS SUMMARY | 2024-09-09 22:25 | XMS_ITS | Referral Summary ---
Author Organization [facility] Address [address] [place] [address] Care Team Providers Care Anhydrous Ammonia Production Supervisor Name Role Phone Rosio Mosher JESSICA-Danny Primary Care Provider + Encounters Date Type Department Care Team Description 06/29/2024 9:20 AM EDT Office Visit [facility] at [facility] [address] [place] [address] Sunshine Reed CNP Syncope and collapse (Primary Dx); Palpitations; Vasovagal syncope; Abnormal echocardiogram from Last 3 Months Allergies Active Allergy Reactions Criticality Noted Date Comments Melatonin Unknown Low 11/07/2021 Pt states it 'makes her hyper'. Medications FLUoxetine (PROzac) 10 mg capsule 10 mg. 12/04/2023 Active desvenlafaxine (Pristiq) 50 mg 24 hr tablet Take 50 mg by mouth in the morning. 05/14/2024 Active desvenlafaxine succinate (Pristiq) 25 mg 24 hour tablet Take 1 tablet by mouth in the morning. 05/15/2024 Active Social History Tobacco Use Types Packs/Day Years [...] Description 09/14/2024 11:00 AM EDT Office Visit [facility] [address] [place] [address] Sunshine Reed, SPINDLE [employer]VER [address] [place] [id number] Insurance [employer] [place] [employer] Care Teams Anhydrous Ammonia Production Supervisor Relationship Specialty Start Date End Date Rosio Mosher FNP-C [facility] [place] [address] PCP - General 12/26/23
--- OUTSIDE RECORDS SUMMARY | 2024-09-09 22:25 | XMS_ITS | Clinical Summary ---
Author Organization [facility] Address [address] [place] [address] Care Team Providers Care Supervisor Baking Name Role Phone Dedra Cochran MD Primary Care Provider [phone] Social History Tobacco Use Types Packs/Day Years Used Date Smoking Tobacco: Never Assessed Comments Unknown Sex and Gender Information Value Date Recorded Sex Assigned at Not on file Legal Sex Female 6:48 PM EDT Gender Identity Female 05/29/2022 6:48 PM EDT Sexual Orientation Not on file Last Filed Vital Signs Vital Sign Reading Time Taken Comments Blood Pressure 100/60 10/13/2019 12:00 PM EDT Pulse - - Temperature - - Respiratory Rate - - Oxygen Saturation - - Inhaled Oxygen Concentration - - Weight 41.6 kg (91 lb 12.8 oz) 10/13/2019 12:00 PM EDT Height 158.1 cm (5' 2.25 ) 10/13/2019 12:00 PM E DT Body Mass Index 16.66 10/13/2019 12:00 PM EDT Plan of Treatment Health Maintenance Due Date Last Done Comments Influenza Vaccine (Season Ended) 2024 01/27/20 15 Insurance [employer] Care Teams Supervisor Baking Relationship Specialty Start Date End Date Dedra Cochran MD [address] [place] [address] PCP - General Family Medicine 07/23/22
--- OUTSIDE RECORDS SUMMARY | 2024-09-09 22:25 | XMS_ITS | Clinical Summary ---
Author Organization [facility] Address [id number] [address] [place] [address] Care Team Providers Care Sleeve Separator Name Role Phone Services, [facility] Primary Care Provider Allergies Active Allergy Reactions Criticality Noted Date Comments Melatonin Low 11/07/2021 Pt states it 'makes her hyper'. Medications 25/iron fum/folic/dha (-1 ORAL) Take by mouth. Active Active Problems No known active problems Family History Medical History Relation Name Comments Breast cancer Maternal Grandmother Relation Name Status Comments Maternal Grandmother Social History Tobacco Use Types Packs/Day Years Used Date Smoking Tobacco: Never Smokeless Tobacco: Never Alcohol Use Standard Drinks/Week Comments Never 0 (1 standard drink = 0.6 oz pur e alcohol) AUDIT-C Answer Date Recorded Frequency of Alcohol Consumption Never 03/05/2020 Average Number of Drinks Not on file 020 Frequency of Binge Drinking Not on file 02/15 Childcare Answer Date Recorded Childcare Unknown 08/14/2018 Employment Answer Date Recorded Employment Unknown 08/14/2018 Purpose - Life Answer Date Recorded Purpose and direction in life Unknown Comments No Sex and Gender Information Value Date Recorded Sex Assigned at Not on file Legal Sex Female 12:10 PM EDT Gender Identity Not on file Sexual Orientation Not on file Last Filed Vital Signs Vital Sign Reading Time Taken Comments Blood Pressure 115/66 11/07/2021 5:11 PM EDT Pulse 65 11/07/2021 5:11 PM EDT Temperature 36.2 C (97.2 F) 11/07/2021 5:11 PM EDT Respiratory Rate 18 11/07/2021 5:11 PM EDT Oxygen Saturation 99% 11/07/2021 5:11 PM EDT Inhaled Oxygen Concentration - - Weight 39.9 kg (88 lb) 11/07/2021 5:11 PM EDT Height 157.5 cm (5' 2 ) 11/07/2021 5:11 PM EDT Body Mass Index 16.1 11/07/2021 5:11 PM EDT Plan of Treatment Health Maintenance Due Date Last Done Comments Chlamydia Screening 2001 Depression Screening 2013 Tobacco Screening 2013 Adult BMI Screening 11/07/2022 11/07/2021 Pap Smear 2022 Influenza Vaccine 11/15/2024 01/26/2015 DTaP,Tdap and Td Vaccines (7 - Td or Tdap) 08/24/2030 08/24/2020, 11/16/2014, 11/19/2007, Additional history exists Medical Devices Not on file Insurance [employer] [facility] Care Teams Sleeve Separator Relationship Specialty Start Date End Date Services, [facility] [address] [place], [place] PCP - General Family Medicine 09/06/19
--- OUTSIDE RECORDS SUMMARY | 2024-09-09 22:26 | XMS_ITS | CCD ---
Author Organization [facility] Care Team Providers Care Replanter Name Role Phone Vanessa Mckeon Unavailable TIANA, DR ARELLANO Attending Unavailable TIANA, DR ARELLANO Consulting Unavailable TIANA, DR ARELLANO Admitting Unavailable REQUEST, DR WEN LISTED Primary Care Unavaila alessandro OTOOLE, DR RON Shaikh Consulting Unavailable TIANA, DR ARELLANO Consulting Unavailable TIANA, DR ARELLANO Admitting Unavailable REQUEST, DR WEN LISTED Primary Care Unavaila alessandro MONTIEL, DR ARELLANO Attending Unavailable XIANG, DR RON Shaikh Consulting Unavailable ASHISH EISENBERG Referring Unavailable SERVICES, [facility] Primary Care Unatn ALEIDA Florence Referring Unavailable Aleida Brumfield MD Unavailable AISHA JIMENEZ Attending Unavailable ALEIDA BRUMFIELD Attending Unavailable Allergies Allergy Classification Reported Allergen(s) Allergy Type Date of Onset Reaction(s) Facility (2 sources) Melatonin; Translations: [MELATONIN] Drug Allergy 11-07-2021 [facility] [...] [PELVIC AND PERINEAL PAIN] Onset: 11-08-2021 Episodic Cancer of head and neck (1 source) Malignant neoplasm of major salivary gland, unspecified; 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)] Onset: 05-04-2024 Chronic Cardiac dysrhythmias (3 sources) Palpitations; Translations: [Palpitations] Onset: 07-17-2023 Episodic Contraceptive [...] Underweight; Translations: [Underweight] Onset: 07-17-2023 Episodic Syncope (3 sources) Syncope and collapse; Translations: [Syncope and collapse] Onset: 07-17-2023 Episodic Past or Other Problems Problem Classification Problem Date Documented Da te Episodic/Chronic Allergic reactions (1 source) Allergic contact dermatitis due to plants, except food Onset: 08-15-2021 Resolved: 08-15-2021 Episodic Results Test Name Value Interpretation Reference Range Facility Office [place] 06-29-2024 Follow-up visit [id number] Alexis Soria 2000 F Date Provider Department Center 06/29/2024 AISHA BOLAÑOS [facility] Family History Problem Relation Age of Onset No Known Problems Father Heart disease Maternal Grandfather Comments: mini heart attack Family Status - Relation Status Age at Mother Alive Father Sister Alive Brother Alive Maternal Grandfather Level of Service:52120 MS OFFICE/OUTPATIENT ESTABLISHED MOD MDM 30 MIN Normal [facility] Office [place] 12-26-2023 Follow-up visit [id number] Alexis Soria 2000 F Date Provider Department [place] 12/26/2023 3848-ALEIDA BRUMFIELD Family History Problem Relation Age of Onset No Known Problems Father Family Status - Relation Status Age at Father Level of Service:43257 MS OFFICE/OUTPATIENT NEW MODERATE MDM 45 MINUTES Normal [facility] .Thyroglobulin by IMAon 09-14 Thyroglobulin [Mass/Vol] 38.3 ng/mL Invalid Interpretation Code 1.5-38.[address] [facility] Comment on above: Result Comment: Acco rding [...] quantitation is 0.1 ng/mL Thyroglobulin measured by [employer] Immunometric Assay Performed at: [facility] [address] [id number] PhD Terry Lopez Performed By: #### 7 [id number] #### [facility] [address] [place] [address] Estradiolon 09-26-2023 E2 [Mass/Vol] 108.0 pg/mL Invalid Interpretation Code [facility] Comment on above: Result Comment: Adul t Female Range Follicular phase 12.5 - 166.0 Ovulation phase 85.8 - 498.0 Luteal phase 43.8 - 211.0 Postmenopausal <6.0 - 54.7 1st trimester 215.0 - >4300.0 Shikha ECLIA methodology Performed at: [facility] [address] [id number] PhD Terry Lopez Performed By: #### 2 [id number] #### [facility] [address] [place] [address] FSH and LHon 09-26-2023 Follitropin Qn 3.1 m[IU]/mL Invalid Interpretation Code [facility] Comment on above: Result Comment: Adul t Female Range Follicular phase 3.5 - 12.5 Ovulation phase 4.7 - 21.5 Luteal phase 1.7 - 7.7 Postmenopausal 25.8 - 134.8 Performed at: [address] [id number] PhD Terry Lopez Performed By: #### 1 [id number] #### [facility] [address] [place] [address] Lutropin Qn 1.6 m[IU]/mL Invalid Interpretation Code [facility] Comment on above: Result Comment: Adul t Female Range Follicular phase 2.4 - 12.6 Ovulation phase 14.0 - 95.6 Luteal phase 1.0 - 11.4 Postmenopausal 7.7 - 58.5 Performed By: #### 1 [id number] #### [facility] [address] [place] [address] T3 Totalon 09-26-2023 T3 [Mass/Vol] 98 ng/dL Invalid Interpretation Code 71-[address] [facility] Comment on above: Result Comment: Perf ormed at: [address] [id number] PhD Terry Lopez Performed By: #### 1 [id number] #### [facility] [address] [place] [address] TgAb+Thyroglobulinon 024 Thyroglobulin Ab Qn [IU]/mL Invalid Interpretation Code 0.0-0.[address] [facility] Comment on above: Result Comment: Thyr oglobulin Antibody measured by [employer] Methodology It should be noted that the presence of thyroglobulin antibodies may not be pathogenic nor diagnostic, especially at very low levels. The assay outreach nurse has found that four percent of individuals without evidence of thyroid disease or autoimmunity will have positive TgAb levels up to 4 IU/mL. Performed at: [address] [id number] PhD Terry Lopez Performed By: #### 7 [id number] #### [facility] [address] [place] [address] Thyroid Perox.tpo Abon 09-25 TPO Ab Qn [IU]/mL Invalid Interpretation Code 0-[address] [facility] Comment on above: Result Comment: Perf ormed at: [facility] [id number] [place], [place] [id number] PhD Terry Lopez Performed By: #### 1 [id number] #### [facility] [address] [place] [address] Thyrotropin Receptor Antibod y, Serumon 09-26-2023 TSH receptor Ab Qn (S) <1.10 Invalid Interpretation Code 0.00-1.[address] [facility] Comment on above: Result Comment: Perf ormed at: [facility] [address] [id number] MD Sunny Cottrell Performed By: #### 1 [id number] #### [facility] [address] [place] [address] C REACTIVE PROTEINon 024 CRP [Mass/Vol] mg/L Normal 0.000-0.744 [facility] Comment on above: Performed By: #### C BCA, CMP, 1987-07, THYR, 3052-08, 2131-11, HA1C #### [facility] ([id number]) [address] [place] [address], [address] [place] [address] CBC AND AUTO DIFFon 07-17-19 24 ABSOLUTE BASOPHIL 0.0 X10E9/L Normal 0.0-0.2 [facility] Comment on above: Performed By: #### C BCA, CMP, 1987-07, THYR, 3052-08, 2131-11, HA1C #### [facility] ([id number]) [address] [facility], [address] [place] [address] ABSOLUTE NEUTROPHIL 1.7 X10E9/L Normal 1.5-6.6 [facility] Comment on above: Performed By: #### C BCA, CMP, 1987-07, THYR, 3052-08, 2131-11, HA1C #### [facility] ([id number]) [address], [address] [place] [address] Basophils/100 WBC (Bld) 0.3 % Normal [facility] Comment on above: Performed By: #### C PRITI, CMP, 1987-07, THYR, 3052-08, 2131-11, HA1C #### [facility] ([id number]) [address], [address] [place] [address] Eosinophils (Bld) [#/Vol] 0.2 10*3/uL Normal 0.0-0.4 [facility] Comment on above: Performed By: #### C PRITI, CMP, 1987-07, THYR, 3052-08, 2131-11, HA1C #### [facility] ([id number]) [address], [address] [place] [address] Eosinophils/100 WBC (Bld) 4.7 % Normal [facility] Comment on above: Performed By: #### C BCA, CMP, 1987-07, THYR, 3052-08, 2131-11, HA1C #### [facility] ([id number]) [address] [address] [place] [address] Erythrocyte distribution width (RBC) [Ratio] 13.0 % Normal 11.5-15.0 [facility] Comment on above: Performed By: #### C PRITI, CMP, 1987-07, THYR, 3052-08, 2131-11, HA1C #### [facility] ([id number]) [address], [address] [place] [address] Hematocrit (Bld) [Volume fraction] 36.4 % Normal 35-47 [facility] Comment on above: Performed By: #### C BCA, CMP, 1987-07, THYR, 3052-08, 2131-11, HA1C #### [facility] ([id number]) [address], [address] [place] [address] Hemoglobin (Bld) [Mass/Vol] 12.5 g/dL Normal 11.7-15.5 [facility] Comment on above: Performed By: #### C PRITI, CMP, 1987-07, THYR, 3052-08, 2131-11, HA1C #### [facility] ([id number]) [address], [address] [place] [address] Lymphocytes (Bld) [#/Vol] 2.2 10*3/uL Normal 1.0-3.5 [facility] Comment on above: Performed By: #### C PRITI, CMP, 1987-07, THYR, 3052-08, 2131-11, HA1C #### [facility] ([id number]) [address], [address] [place] [address] Lymphocytes/100 WBC (Bld) 46.9 % Normal [facility] Comment on above: Performed By: #### C PRITI, CMP, 1987-07, THYR, 3052-08, 2131-11, HA1C #### [facility] ([id number]) [address], [address] [place] [address] MCH (RBC) [Entitic mass] 30.3 pg Normal 27-34 [facility] Comment on above: Performed By: #### C PRITI CMP, 1987-07, THYR, 3052-08, 2131-11, HA1C #### [facility] ([id number]) [address], [address] [place] [address] MCHC (RBC) [Mass/Vol] 34.4 g/dL Normal 32-36 [facility] Comment on above: Performed By: #### C PRITI, CMP, 1987-07, THYR, 3052-08, 2131-11, HA1C #### [facility] ([id number]) [address], [address] [place] [address] MCV (RBC) [Entitic vol] 88 fL Normal 80-100 [facility] Comment on above: Performed By: #### C BCA, CMP, 1987-07, THYR, 3052-08, 2131-11, HA1C #### [facility] ([id number]) [address], [address] [place] [address] Monocytes (Bld) [#/Vol] 0.6 10*3/uL Normal 0-0.9 [facility] Comment on above: Performed By: #### C BCA, CMP, 1987-07, THYR, 3052-08, 2131-11, HA1C #### [facility] ([id number]) [address], [address] [place] [address] Monocytes/100 WBC (Bld) 11.7 % Normal [facility] Comment on above: Performed By: #### C BCA, CMP, 1987-07, THYR, 3052-08, 2131-11, HA1C #### [facility] ([id number]) [address], [address] [place] [address] Neutrophils/100 WBC (Bld) 36.4 % Normal [facility] Comment on above: Performed By: #### C BCA, CMP, 1987-07, THYR, 3052-08, 2131-11, HA1C #### [facility] ([id number]) [address], [address] [place] [address] Platelet mean volume (Bld) [Entitic vol] 9.2 fL Normal 7-12 [facility] Comment on above: Performed By: #### C BCA, CMP, 1987-07, THYR, 3052-08, 2131-11, HA1C #### [facility] ([id number]) [address], [address] [place] [address] Platelets (Bld) [#/Vol] 215 10*3/uL Normal 150-450 [facility] Comment on above: Performed By: #### C BCA, CMP, 1987-07, THYR, 3052-08, 2132-9, HA1C #### [facility] ([id number]) [address], [address] [place] [address] RBC COUNT 4.13 X10E12/L Normal 3.80-5.20 [facility] Comment on above: Performed By: #### C BCA, CMP, 1987-07, THYR, 3052-08, 2131-11, HA1C #### [facility] ([id number]) [address], [address] [place] [address] WBC (Bld) [#/Vol] 4.7 10*3/uL Normal 4.0-11.0 [facility] Comment on above: Performed By: #### C BCA, CMP, 1987-07, THYR, 3052-08, 2131-11, HA1C #### [facility] ([id number]) [address], [address] [place] [address] COMPREHENSIVE METABOLIC PANE Wan 07-17-2023 Albumin [Mass/Vol] 4.6 g/dL Normal 3.2-5.3 [facility] Comment on above: Performed By: #### C BCA, CMP, 1987-07, THYR, 3052-08, 2131-11, HA1C #### [facility] ([id number]) [address], [address] [place] [address] ALP [Catalytic activity/Vol] 44 U/L Normal 39-130 [facility] Comment on above: Performed By: #### C BCA, CMP, 1987-07, THYR, 3052-08, 2131-11, HA1C #### [facility] ([id number]) [address], [address] [place] [address] ALT [Catalytic activity/Vol] 10 U/L Normal 0-31 [facility] Comment on above: Performed By: #### C BCA, CMP, 1987-07, THYR, 3052-08, 2131-11, HA1C #### [facility] ([id number]) [address], [address] [place] [address] Anion gap [Moles/Vol] 10 mmol/L Normal 5-15 [facility] Comment on above: Performed By: #### C BCA, CMP, 1987-07, THYR, 3052-08, 2131-11, HA1C #### [facility] ([id number]) [address], [address] [place] [address] AST [Catalytic activity/Vol] 17 U/L Normal 0-41 [facility] Comment on above: Performed By: #### C BCA, CMP, 1987-07, THYR, 3052-08, 2131-11, HA1C #### [facility] ([id number]) [address], [address] [place] [address] Bilirubin [Mass/Vol] 0.5 mg/dL Normal 0.3-1.2 [facility] Comment on above: Performed By: #### C BCA, CMP, 1987-07, THYR, 3052-08, 2131-11, HA1C #### [facility] ([id number]) [address], [address] [place] [address] Calcium [Mass/Vol] 9.2 mg/dL Normal 8.5-10.5 [facility] Comment on above: Performed By: #### C BCA, CMP, 1987-07, THYR, 3052-08, 2131-11, HA1C #### [facility] ([id number]) [address], [address] [place] [address] Chloride [Moles/Vol] 104 mmol/L Normal 98-109 [facility] Comment on above: Performed By: #### C BCA, CMP, 1987-07, THYR, 3052-08, 2131-11, HA1C #### [facility] ([id number]) [address], [address] [place] [address] CO2 [Moles/Vol] 27 mmol/L Normal 22-32 [facility] Comment on above: Performed By: #### C BCA, CMP, 1987-07, THYR, 3052-08, 2131-11, HA1C #### [facility] ([id number]) [address], [address] [place] [address] Creatinine [Mass/Vol] 0.71 mg/dL Normal 0.40-1.00 [facility] Comment on above: Result Comment: METH OD TRACEABLE TO IDMS STANDARD Performed By: #### C BCA, CMP, 1987-07, THYR, 3052-08, 2131-11, HA1C #### [facility] ([id number]) [address] [facility] [address] [place] [address] eGFR (CKD-EPI) NON-RACE DEPENDENT >90 Normal >59 [facility] Comment on above: Result Comment: Reported eGFR is based on the CKD-EPI 2020 equation that does not use a race coefficient. Performed By: #### C BCA, CMP, 1987-07, THYR, 3052-08, 2131-11, HA1C #### [facility] ([id number]) [address] [facility] [address] [place] [address] Glucose [Mass/Vol] 86 mg/dL Normal 65-99 [facility] Comment on above: Performed By: #### C BCA, CMP, 1987-07, THYR, 3052-08, 2131-11, HA1C #### [facility] ([id number]) [address] [facility] [address] [place] [address] Potassium [Moles/Vol] 3.9 mmol/L Normal 3.5-5.0 [facility] Comment on above: Performed By: #### C BCA, CMP, 1987-07, THYR, 3052-08, 2131-11, HA1C #### [facility] ([id number]) [address] [address] [place] [address] Protein [Mass/Vol] 7.2 g/dL Normal 6.0-8.0 [facility] Comment on above: Performed By: #### C PRITI, CMP, 1987-07, THYR, 3052-08, 2131-11, HA1C #### [facility] ([id number]) [address], [address] [place] [address] Sodium [Moles/Vol] 141 mmol/L Normal 134-146 [facility] Comment on above: Performed By: #### C BCA, CMP, 1987-07, THYR, 3052-08, 2131-11, HA1C #### [facility] ([id number]) [address] [facility] [address] [place] [address] Urea nitrogen [Mass/Vol] 12 mg/dL Normal 5-23 [facility] Comment on above: Performed By: #### C PRITI CMP, 1987-07, THYR, 3052-08, 2131-11, HA1C #### [facility] ([id number]) [address], [address] [place] [address] Cortisol [Mass/Vol]on 2023 CORTISOL 21.1 ug/dL Normal [facility] Comment on above: Result Comment: Due to the diurnal variation of cortisol levels in normal subjects, all cortisol measurements should be referenced to the time of day of sample collection. AM Cortisol Age>=6 6.7-22.4 ug/dL PM Cortisol Age>=6 <10 ug/dL Performed By: #### 2 143-6 #### [facility] ([id number]) [address], [address] [place] [address] HGB A1C (GLYCO-HGB)on 2023 Glucose [Mass/Vol] 103 mg/dL Normal [facility] Comment on above: Performed By: #### C BCA, CMP, 1987-07, THYR, 3052-08, 2131-11, HA1C #### [facility] ([id number]) [address], [address] [place] [address] HbA1c (Bld) [Mass fraction] 5.2 % Normal 4.4-5.6 [facility] Comment on above: Result Comment: NOTE [...] MARCOS, 1987-07, THYR, 3052-08, 2131-11, HA1C #### [facility] ([id number]) [address] [address] Insulin Qnon 07-17-2023 INSULIN 2.76 uIU/mL Normal 1.00-23.00 [facility] Comment on above: Result Comment: Ref. range is for FASTING NON-DIABETIC POPULATION. Performed By: #### 2 0448-7 #### [facility] ([id number]) [address] [facility] [address] [place] [address] T3 [Mass/Vol]on 07-17-2023 TOTAL T3 (TT3) 173 ng/dL Normal 87-178 [facility] Comment on above: Performed By: #### C PRITI CMP, 1987-07, THYR, 3052-08, 2131-11, HA1C #### [facility] ([id number]) [address] [address] THYROID PROFILEon 07-17-2023 Free T4 [Mass/Vol] 0.65 ng/dL Normal 0.61-1.60 [facility] Comment on above: Performed By: #### C PRITI CMP, 1987-07, THYR, 3052-08, 2131-11, HA1C #### [facility] ([id number]) [address], [address] [place] [address] TSH 4.57 uIU/mL Normal 0.49-4.67 [facility] Comment on above: Performed By: #### C BCA, CMP, 1987-07, THYR, 3052-08, 2131-11, HA1C #### [facility] ([id number]) [address] [place] [address] VITAMIN B12on 07-17-2023 Cobalamin (Vitamin B12) [Mass/Vol] 404 pg/mL Normal 180-914 [facility] Comment on above: Performed By: #### C BCA, CMP, 1987-07, THYR, 3052-08, 2131-11, HA1C #### [facility] ([id number]) [address] [place] [address] US PELVIS TRANSVAGon 022 US PELVIS TRANSVAG [...] by: RON OTOOLE Date: 2021-11-08 18:19 Normal [facility] HCG-BETA SUBUNIT QUANTon 08- 19-2022 hCG,Beta Subunit,Qnt,Serum <1 Normal [facility] Comment on above: Result Comment: Fema le (Non-) 0 - 5 (Postmenopausal) 0 - 8 . Female () Weeks of Gestation 3 6 - 71 4 10 - 750 5 869 - 9826 6 282 - 74576 7 [phone] -[phone] 8 06361 -370650 9 57711 -792477 10 46400 -949986 12 09284 -193206 14 08519 - 72220 15 52886 - 35486 16 7653 - 89590 17 4323 - 23963 18 1842 - 27981 [employer] methodology Performed By: #### H CGSUB #### [facility] [address] [place] [address] Dr. Pam Lam US PELVIS AND TRANSVAGon US PELVIS AND TRANSVAG EXAMINATION: US PELVIS [...] RON OTOOLE Date: 2021-11-02 06:26 Normal [facility] CBC AUTO DIFFon 11-01-2021 BASO # 0.0 103/ul Normal 0.0-0.1 [facility] Comment on above: Performed By: #### C BC #### [facility] [address] [place] [address] Dr. Pam Lam Basophils/100 WBC (Bld) 0.4 % Normal 0.2-2.0 [facility] Comment on above: Performed By: #### C BC #### [facility] [address] [place] [address] Dr. Pam Lam EO # 0.1 103/ul Normal 0.0-0.7 [facility] Comment on above: Performed By: #### C BC #### [facility] [address] [place] [address] Dr. Pam Lam Eosinophils/100 WBC (Bld) 3.1 % Normal 0.9-7.0 [facility] Comment on above: Performed By: #### C BC #### [facility] [address] [place] [address] Dr. Pam Lam Erythrocyte distribution width (RBC) [Ratio] 11.9 % Normal 11.0-15.0 [facility] Comment on above: Performed By: #### C BC #### [facility] [address] [place] [address] Dr. Pam Lam Hematocrit (Bld) [Volume fraction] 37.5 % Normal 36.0-48.0 [facility] Comment on above: Performed By: #### C BC #### [facility] [address] [place] [address] Dr. Pam Lam Hemoglobin (Bld) [Mass/Vol] 12.9 g/dL Normal 12.0-16.0 [facility] Comment on above: Performed By: #### C BC #### [facility] [address] [place] [address] Dr. Pam Lam IG # 0.01 10e3/ul Normal 0.00-0.03 [facility] Comment on above: Performed By: #### C BC #### [facility] [address] [place] [address] Dr. Pam Lam IG % 0.2 % Normal 0.0-0.5 [facility] Comment on above: Performed By: #### C BC #### [facility] [address] [place] [address] Dr. Pam Lam LYMPH # 1.6 103/ul Normal 1.2-3.8 [facility] Comment on above: Performed By: #### C BC #### [facility] [address] [place] [address] Dr. Pam Lam Lymphocytes/100 WBC (Bld) 36.1 % Normal 20.5-60.0 [facility] Comment on above: Performed By: #### C BC #### [facility] [address] [place] [address] Dr. Pam Lam MANUAL DIFF REQ NO Normal [facility] Comment on above: Performed By: #### C BC #### [facility] [address] [place] [address] Dr. Pam Lam MCH (RBC) [Entitic mass] 29.9 pg Normal 26.7-34.0 [facility] Comment on above: Performed By: #### C BC #### [facility] [address] [place] [address] Dr. Pam Lam MCHC (RBC) [Mass/Vol] 34.4 g/dL Normal 29.9-35.2 [facility] Comment on above: Performed By: #### C BC #### [facility] [address] [place] [address] Dr. Pam Lam MCV (RBC) [Entitic vol] 86.8 fL Normal 81.0-99.0 [facility] Comment on above: Performed By: #### C BC #### [facility] [address] [place] [address] Dr. Pam Lam MONO # 0.6 103/ul Normal 0.3-0.8 [facility] Comment on above: Performed By: #### C BC #### [facility] [address] [place] [address] Dr. Pam Lam Monocytes/100 WBC (Bld) 13.1 % Critically high 1.7-12.0 [facility] Comment on above: Performed By: #### C BC #### [facility] [address] [place] [address] Dr. Pam Lam NEUT # 2.1 103/ul Normal 1.4-6.5 [facility] Comment on above: Performed By: #### C BC #### [facility] [address] [place] [address] Dr. Pam Lam Neutrophils/100 WBC (Bld) 47.1 % Normal 43.0-75.0 [facility] Comment on above: Performed By: #### C BC #### [facility] [address] [place] [address] Dr. Pam Lam Platelet mean volume (Bld) [Entitic vol] 10.4 fL Normal 9.5-13.5 [facility] Comment on above: Performed By: #### C BC #### [facility] [address] [place] [address] Dr. Pam Lam PLT 186 103/ul Normal 150-450 [facility] Comment on above: Performed By: #### C BC #### [facility] [address] [place] [address] Dr. Pam Lam RBC 4.32 106/ul Normal 4.20-5.40 [facility] Comment on above: Performed By: #### C BC #### [facility] [address] [place] [address] Dr. Pam Lam WBC 4.5 103/ul Normal 4.0-11.0 [facility] Comment on above: Performed By: #### C BC #### [facility] [address] [place] [address] Dr. Pam Lam PROTIMEon 11-01-2021 INR Coag (PPP) [Relative time] 1.07 {INR} Normal [facility] Comment on above: Performed By: #### P T, PTT #### [facility] [address] [place] [address] Dr. Pam Lam INR GUIDELINES SEE BELOW Normal The [facility] Comment on above: Result Comment: IRIS RED INR: 2.0 - 3.0 CONDITIONS NOT LISTED BELOW 2.5 - 3.5 FOR PROSTHETIC HEART VALVE REPLACEMENT 2.5 - 3.5 RECURRENT THROMBOSIS Performed By: #### P T, PTT #### [facility] [address] [place] [address] Dr. Pam Lam PT Coag (PPP) [Time] 11.5 s Normal 9.0-11.6 [facility] Comment on above: Performed By: #### P T, PTT #### [facility] [address] [address] [address] Pam Lam PTTon 11-01-2021 aPTT Coag (Bld) [Time] 29.1 s Normal 22.3-36.2 [facility] Comment on above: Performed By: #### P T, PTT #### [facility] [address] [address] [address] Pam Lam TSHon 11-01-2021 TSH 1.282 uIU/mL Normal 0.516-4.130 [facility] Comment on above: Performed By: #### T SH #### [facility] [address] [place] [address] Dr. Pam Lam Vital Signs Date Time Vital Sign Value Performing Clinician Facility 08-15-2021 10:45-0400 Body height 157.48 cm Vanessa Linda Other [facility] Other 08-15-2021 10:45-0400 Body mass index (BMI) [Ratio] 15.36 kg/m2 Vanessa Linda Other [facility] Other 08-15-2021 10:45-0400 Body temperature 99.6 [degF] Vanessa Linda Other [facility] Other 08-15-2021 10:45-0400 Body weight 38.1 kg Vanessa Kingmond Other [facility] Other 08-15-2021 10:45-0400 Respiratory rate 18 /min Vanessa Linda Other [facility] Other 08-15-2021 10:45-0400 SaO2% (BldA) [Mass fraction] 98 % Vanessa Linda Other [facility] Other Encounters Encounter Date Encounter Type Care Provider Facility Start: 06-29-2024 End: 06-29-2024 ambulatory AISHA JIMENEZ [facility] Start: 05-04-2024 ambulatory ALEIDA BRUMFIELD Deborahvanessa lity:[facility] Start: 05-04-2024 End: 05-04-2024 Subsequent hospital visit by physician Mri Main J (I-Stat/1.5t) MRI J Comment on above: 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 Ashish Plan of Treatment Date Care Activity Detail Author Start: 11-16-2023 Covid-19 Vaccine ( season) Covid-19 Vaccine ( season) [facility] Start: 11-16-2023 Influenza vaccination Influenza Vacc ine (#1) [facility] Start: 2022 Screening for malign ant neoplasm of cervix Cervical Cancer Screening [facility] Start: 2020 Hepatitis B Vaccine (1 of 3 - 19+ 3-dose series) Hepatitis B Vaccine (1 of 3 - 19+ 3-dose series) [facility] Start: 2020 Urine microalbumin profile DTa P,Tdap,Td Vaccine (1 - Tdap) [facility] Start: 11-11-2019 Anxiety Screening Anxiety Screening [facility] Start: 11-11-2019 Depression Screening Depression Scre ening [facility] Start: 11-11-2019 GC (Gonorrhea) Scree theresa (18-24) GC (Gonorrhea) Screening (18-24) [facility] Start: 11-11-2019 Hepatitis C screening Hepatitis C Sc reening [facility] Start: 11-11-2019 HIV screening HIV Screening [facility] Start: 11-11-2019 Screening for Chlamy alayna trachomatis Chlamydia Screening (18) [facility] Start: 2017 Meningococcal B Vacc ine (1 of 2 - Standard) Meningococcal B Vaccine (1 of 2 - Standard) [facility] Start: 2016 HPV Vaccine (1 - 3-d ose series) HPV Vaccine (1 - 3-dose series) [facility] Start: 11-11-2015 Peds To Adult Transi tion Annual Assessment Peds To Adult Transition Annual Assessment [facility] Start: 2013 Peds To Adult Transi tion Initial Discussion Peds To Adult Transition Initial Discussion [facility] Payers Date Payer Category Payer [facility] Health [facility] [employer] [id number] 2021 [place] [address] [id number] 2001 Unknown [id number] 2001 Unknown [id number] 2001 Unknown [id number] 1959 Private Health Insurance [id number] 1959 Unknown [id number] Social History Date Type Detail Facility Unknown if ever smoked [facility] Other Sex Assigned At [facility] Other Tobacco smoking status [facility] Tobacco smoking consumption unknown [facility] Start: 2001 Sex assigned at Not on file C [facility] Progress note 06-29-2024 Note Date & Type Note Facility 06-29-2024 Note Patient state she is really tired all the time lately. Patient states she still feels palpitations, patient states she feel like her heart is either beating really fast or not at all lately. Patient states she has dyspnea with exertions, chest pain that starts under her left arm and goes across the left side of her chest and into her throat, patient describes it a sharp, and happens randomly. Patient denies any recent syncopal episodes. Review of Systems Cardiovascular: Positive for chest pain, dyspnea on exertion and palpitations. Psychiatric/Behavioral: Positive for depression. The patient is nervous/anxious. [facility] Progress note 06-29-2024 Note Date & Type Note Facility 06-29-2024 Note Cardiology [facility] Note Chief Complaint: Palpitations 06/29/2024 She reports having syncopal episodes since she gave to her daughter in 2020. Near syncopal episodes can occur if she is standing for long periods of time or if she's going to the bathroom. Prior to syncope she will feel left sided chest pains, hot, sweaty, blurred vision, nausea. If she can sit down, this will help. She's had a total of 3 syncopal episodes. She feels like her heart is racing a lot of the time. Sx's of anxiety can exacerbate this. Racing HR often occurs when she is up for long periods of time. Sx's occur every other day or so. She cut back on her caffeine intake. She'll drink 1-2 cans of pop a day. It feels like it has helped some. She tries to drink 3 bottles of water a day. She tries to walk her dog - hasn't been doing this as much with the colder weather. She is trying to cut back on vaping tobacco and marijuana. --------- Last HPI per Dr. Brumfield 06/29/2024: Alexis Soria is a 23 y.o. female [...] been drinking any alcohol since that time. Review of Systems Cardiovascular: Positive for chest pain, dyspnea on exertion and palpitations. Psychiatric/Behavioral: Positive for depression. The patient is nervous/anxious. Past Medical History She has no past medical history on file. Surgical History She has no past surgical history on file. Social History She reports that she has been smoking cigarettes. She uses smokeless tobacco. She reports current drug use. Drug: Marijuana. She reports that she does not drink alcohol. Family History Family History Problem Relation Name Age of Onset No Known Problems Father Medications Current Outpatient Medications on File Prior to Visit Medication Sig Dispense Refill desvenlafaxine (Pristiq) 50 mg 24 hr tablet Take 50 mg by mouth in the morning. desvenlafaxine succinate (Pristiq) 25 mg 24 hour tablet Take 1 tablet by mouth in the morning. FLUoxetine (PROzac) 10 mg capsule 10 mg. No current facility-administered medications on file prior to visit. Allergies Melatonin Physical Exam VITAL SIGNS: BP 95/67 (BP Location: Left arm, Patient Position: Sitting) Pulse 89 Ht 1.575 m (5' 2 ) Wt 39 kg (86 lb) SpO2 98% BMI 15.73 kg/m??? Constitutional: Well developed, thin appearing, No acute distress, Non-toxic appearance. HENT: Normocephalic, [...] (from the past 4464 hour(s)). Echo results: 01/26/2024 LV is normal in size and wall thickness. Systolic function appears at be at the lower limites of normal with LVEF estimate 50-55%. Increased trabeculations are seen in the apex of the LV RV size and systolic function normal No significant valvu (more content not included)... [facility] Progress note 02-05-2024 Note Date & Type Note Facility 02-05-[address] Brumfield would like cardiac MRI at [facility] s/p echo. Patient made aware. Order faxed. [facility] Progress note 12-26-2023 Note Date & Type [...] or concerns. Aleida Brumfield MD Interventional Cardiology [facility] Evaluation note 08-15-2021 Note Date & Type [...] no improvement in 2 to 3 days [facility] Other History general Narrative - Reported Note Date & Type Note Facility History general Narrative - Reported Type Medical History Seasonal allergies Hospitalization History rsv [facility] Other Reason for visit Narrative MRI/CT (Routine) - Authorized Note Date & Type Note Facility Reason for visit Narrative Specialty Diagnoses / Procedures Referred By Anni cerda Referred To Contact Radiology / RADIO MRI MAIN J BLDG Diagnoses MR cardiac morphology and function W and WO IV contrast for 142.8 abnormal trabeculation of left ventricular myocardium Procedures MRI WWO CARD 440 Aleida Brumfield MD [address] [place] [address] Phone: tel: fax: MRI J [address] [place] [address] Phone: tel: Referral ID Status Reason Start Date Expiration Date Visits Requested Visits Authorized [id number] Authorized Clearance Not Met - Admin/Chairm an/Director Advise to Postpone/Res chedule or Not Proceed 04/28/2024 10/25/2024 1 1 [facility] Summary Purpose Family History No Family History [...] and content) DATE CREATED AUTHOR 2021 [facility] DATE CREATED AUTHOR AUTHOR'S ORGANIZ ATION 08/01/2023 [facility] DATE CREATED AUTHOR AUTHOR'S ORGANIZ ATION 10/02/2023 [facility] DATE CREATED AUTHOR AUTHOR'S ORGANIZ ATION 05/06/2024 [facility] DATE CREATED AUTHOR AUTHOR'S ORGANIZ ATION 06/30/2024 [facility] Source Comments (unrecognize d section and content) In the event this informatio n is protected by the Federal Confidentiality of Alcohol and Drug Abuse Patient Records regulations: The Federal rules restrict any use of the information to criminally investigate or prosecute any alcohol or drug abuse patient.[facility] Care Teams (unrecognized sec tion and content) Replanter Relationship Specialty Start Date End Date Aleida Brumfield MD [address] [place], [place] [id number] Referring Cardiology 02/18/24 FOR RECORDS PERTAINING TO PATIENTS WHO ARE [...] BE BASED ON THE PRIMARY CLINICAL RECORDS. [facility] provides no warranty or guarantee of the accuracy or completeness of information in this document.
--- NOTE | 2024-09-09 22:49 | ED.ABDPAIN1 ---
HPI - Abdominal Pain General Chief Complaint: Abdominal Pain Stated Complaint: BURNING IN STOMACH, TIGHTNESS IN CHEST Time Seen by Provider: 09/09/24 22:41 Source: patient Mode of arrival: walk-in Limitations: no limitations History of Present Illness HPI narrative: This 23-year-old female who denies tobacco use or alcohol use but states that she vapes presents for evaluation of burning abdominal pain that radiates into her chest. She states she has not belching more than usual. She had some mild diarrhea earlier today. She does not have any lower abdominal pain or urinary symptoms. She doubts the possibility of . She states she cannot stand up straight due to the pain in her upper abdomen. She has not had any nausea or vomiting. She has not had hematemesis or dark tarry stools. She states that her sister gave her a Gas-X earlier in the day thinking that it would help her pain but it has not. She does not have any dizziness or syncope. She has no lower extremity pain or swelling. She has not had a fever. Related Data Home Medications ?Medication ?Instructions ?Recorded ?Confirmed No Known Home Medications 09/09/24 09/09/24 Allergies Allergy/AdvReac Type Severity Reaction Status Date / Time No Known Drug Allergies Allergy Verified 09/09/24 22:37 Review of Systems ROS Status of ROS 10 or more systems reviewed and unremarkable except as noted in history and below PFSH PFSH Social History Little interest or pleasure in doing things: not at all Feeling down, depressed, or hopeless: not at all Exam Narrative Exam Narrative: Vital signs and Nursing Notes reviewed: Patient is afebrile with a normal pulse, normal blood pressure, she has not hypoxic with pulse ox of 97% on room air General: Awake, alert, oriented, thin female resting comfortably on the stretcher, no acute distress, HEENT: Normocephalic atraumatic, mucous membranes are moist and pink, eyes are clear, normal conjunctiva, vision is grossly intact, posterior pharynx is normal in appearance. Neck: Supple, no meningeal signs, no anterior or posterior cervical lymphadenopathy Chest: Lungs are clear to auscultation with good air entry, there is no wheezing rhonchi or rales appreciated no accessory muscle use, patient is speaking in complete sentences-no chest wall tenderness to palpation CVS: Regular rate and rhythm S1-S2, no murmurs rubs or gallops, pulses are brisk and equal bilaterally ABD: Softly distended, mild epigastric tenderness, there is no right lower quadrant, right upper quadrant or left lower quadrant tenderness Extremities: Moving all extremities, no lower extremity tenderness or swelling noted, negative Homans' sign, pulses are brisk and equal bilaterally Skin: Normal in appearance without rash,pallor, petechiae or purpura Neuro: No focal deficits Constitutional Vital Signs, click to edit/add: Last Vital Signs Temp 98.6 F 09/09/24 22:25 Pulse 66 09/10/24 01:29 Resp 20 09/10/24 01:29 BP 94/61 09/10/24 01:29 Pulse Ox 97 09/10/24 01:29 O2 Del Method Room Air 09/10/24 01:29 Course Vital Signs Vital signs: Vital Signs Temperature 98.6 F 09/09/24 22:25 Pulse Rate 94 H 09/09/24 22:25 Respiratory Rate 20 09/09/24 22:25 Blood Pressure 110/65 09/09/24 22:25 Pulse Oximetry 97 09/09/24 22:25 Oxygen Delivery Method Room Air 09/09/24 22:25 Temperature 98.6 F 09/09/24 22:25 Pulse Rate 66 09/10/24 01:29 Respiratory Rate 20 09/10/24 01:29 Blood Pressure 94/61 09/10/24 01:29 Pulse Oximetry 97 09/10/24 01:29 Oxygen Delivery Method Room Air 09/10/24 01:29 MDM - Abdominal Pain MDM Narrative Medical decision making narrative: This 23-year-old female, nondrinker, non-smoker presents for evaluation of epigastric abdominal pain that goes up into her chest. She states the pain started earlier today. She has had some diarrhea. She took a Gas-X before coming to emergency department without improvement. She states her abdomen feels bloated. She does not have any chest pain or shortness of breath but the pain in her belly radiates up into her chest when she stands up. She states she is having trouble fully standing up. Her vital signs are stable. Abdomen is soft and mildly distended. She is tender in the epigastrium. An IV was placed and routine labs are ordered. She has a normal white count and hemoglobin is stable. Electrolytes liver function test and lipase are all normal. Abdominal series x-ray was reviewed by myself and does not show any acute findings. She was medicated with IV fluids, Pepcid, Toradol and a GI cocktail. On reevaluation she is feeling better. The results of her labs and x-rays were discussed with her. Clinically I suspect she has gastritis. She will be discharged home with a prescription for Pepcid and Protonix. I told her to have a real bland diet over the course of the next week and slowly advance as tolerated. She is in agreement with this plan and was discharged home in stable condition. Lab Data Attestation: I reviewed the patient's lab results. Labs: Lab Results 09/09/24 09/09/24 Range/Units 23:30 23:35 WBC 8.1 (4.0-11.0) 10^3/uL RBC 3.94 L (4.20-5.40) 10^6/uL Hgb 11.8 L (12.0-16.0) g/dL Hct 33.8 L (36.0-48.0) % MCV 85.8 (81.0-99.0) fL MCH 29.9 (26.7-34.0) pg MCHC 34.9 (29.9-35.2) g/dL RDW 12.3 (11.0-15.0) % Plt Count 157 (150-450) 10^3/uL MPV 10.7 (9.5-13.5) fL Neut % (Auto) 65.2 (43.0-75.0) % Lymph % (Auto) 20.7 (20.5-60.0) % [place] % (Auto) 12.6 H (1.7-12.0) % Eos % (Auto) 1.1 (0.9-7.0) % Baso % (Auto) 0.2 (0.2-2.0) % Neut # (Auto) 5.3 (1.4-6.5) 10^3/uL Lymph # (Auto) 1.7 (1.2-3.8) 10^3/uL [place] # (Auto) 1.0 H (0.3-0.8) 10^3/uL Eos # (Auto) 0.1 (0.0-0.7) 10^3/uL Baso # (Auto) 0.0 (0.0-0.1) 10^3/uL Abs Immat Gran (auto) 0.02 (0.00-0.03) 10^3/uL Imm/Tot Granulo (auto) 0.2 (0.0-0.5) % Sodium 140 (136-145) mmol/L Potassium 3.3 L (3.5-5.1) mmol/L Chloride 105 (98-107) mmol/L Carbon Dioxide 25.5 (21.0-32.0) mmol/L Anion Gap 12.8 BUN 14.0 (7.0-18.0) mg/dL Creatinine 0.60 (0.55-1.02) mg/dL Est GFR ( Amer) >60 (>=60 mL/min/1.73m^2) Est GFR (Non-Af Amer) >60 (>=60 mL/min/1.73m^2) BUN/Creatinine Ratio 23.3 Glucose 98 (74-106) mg/dL Calcium 8.9 (8.5-10.1) mg/dL Total Bilirubin 0.4 (0.2-1.0) mg/dL AST 12 L (15-37) U/L ALT 12 L (14-59) U/L Alkaline Phosphatase 47 (46-116) U/L Total Protein 6.8 (6.4-8.2) g/dL Albumin 3.7 (3.4-5.0) g/dL Globulin 3.1 g/dL Albumin/Globulin Ratio 1.2 Lipase 31.0 (16.0-77.0) U/L Urine Color Yellow (YELLOW) Urine Clarity Clear (CLEAR) Urine pH 6.0 (5.0-9.0) Ur Specific [place] >=1.030 A (1.005-1.025) Urine Protein Negative (NEG/TRACE) mg/dL Urine Glucose (UA) Negative (NEGATIVE) mg/dL Urine Ketones Negative (NEGATIVE) mg/dL Urine Occult Blood Negative (NEGATIVE) Urine Nitrite Negative (NEGATIVE) Urine Bilirubin Negative (NEGATIVE) Urine Urobilinogen 0.2 (0.2-1.0) EU/dL Ur Leukocyte Esterase Negative (NEGATIVE) Urine RBC 0-2 (0-2) #/HPF Urine WBC 0-2 A (NONE SEEN) #/HPF Ur Squamous Epith Cells Moderate A (NONE/RARE) #/LPF Urine Crystals None seen (None Seen) #/HPF Urine Bacteria Trace A (NONE SEEN) #/HPF Urine Casts None seen (NONE SEEN) #/LPF Urine Mucus Moderate A (NONE SEEN) Ur Culture Indicated? No Urine HCG, Qual Negative (NEGATIVE) Discharge Plan Discharge Chief Complaint: Abdominal Pain Clinical Impression: Gastritis Patient Disposition: Home, Self-Care Time of Disposition Decision: 01:14 Condition: Good Prescriptions / Home Meds: No Action No Known Home Medications Print Language: British Instructions: Gastritis (DC), Diet for Stomach Ulcers and Gastritis (ED) Referrals: ASHISH EISENBERG [Primary Care Provider, Unknown] - 1 week Discharge Date/Time: 09/10/24 01:37
[2024-09-09] MEDS: 0.9 % SODIUM CHLORIDE 1,000 ML 1000 ML IV (23:38)
[2024-09-09] MEDS: KETOROLAC TROMETHAMINE 30 MG/ML VIAL 15 MG IVP (23:39)
[2024-09-09] MEDS: FAMOTIDINE/PF 20 MG/2 ML VIAL IV (23:39)
[2024-09-09] MEDS: lidocaine HCL 15 ML, MAG HYDROX/ALUMINUM HYD/SIMETH 30 ML, HYOSCYAMINE SULFATE 0.25 MG PO (23:39)
[2024-09-09 23:57] LABS: Basophils Percent Auto 0.2 % (0.2-2.0); Eosinophils Absolute Auto 0.1 10^3/uL (0.0-0.7); Eosinophils Percent Auto 1.1 % (0.9-7.0); Hematocrit 33.8 % (36.0-48.0); Hemoglobin 11.8 g/dL (12.0-16.0); Immature Granulocytes Abs Auto 0.02 10^3/uL (0.00-0.03); Immature Granulocytes Pct Auto 0.2 % (0.0-0.5); Lymphocytes Absolute Auto 1.7 10^3/uL (1.2-3.8); Lymphocytes Percent Auto 20.7 % (20.5-60.0); Mean Corpuscular HGB Conc 34.9 g/dL (29.9-35.2); Mean Corpuscular Hemoglobin 29.9 pg (26.7-34.0); Mean Corpuscular Volume 85.8 fL (81.0-99.0); Mean Platelet Volume 10.7 fL (9.5-13.5); Monocytes Percent Auto 12.6 % (1.7-12.0); Neutrophils Absolute Auto 5.3 10^3/uL (1.4-6.5); Neutrophils Percent Auto 65.2 % (43.0-75.0); Platelet Count 157 10^3/uL (150-450); Red Blood Count 3.94 10^6/uL (4.20-5.40); Red Cell Distribution Width 12.3 % (11.0-15.0); White Blood Count 8.1 10^3/uL (4.0-11.0)
[2024-09-09 23:59] LABS: Bilirubin Urine NEGATIVE (NEGATIVE); Blood Urine NEGATIVE (NEGATIVE); Clarity Urine CLEAR (CLEAR); Color Urine YELLOW (YELLOW); Glucose Urine UA NEGATIVE (NEGATIVE); Ketones Urine NEGATIVE (NEGATIVE); Leukocyte Esterase Urine NEGATIVE (NEGATIVE); Nitrite Urine NEGATIVE (NEGATIVE); Protein Urine NEGATIVE (NEG/TRACE); Specific Gravity Urine >=1.030 (1.005-1.025); Urobilinogen Urine 0.2 EU/dL (0.2-1.0)
[2024-09-10 00:08] LABS: HCG Qualitative Urine* NEGATIVE (NEGATIVE); Internal Control Within Normal Limits
[2024-09-10 00:14] LABS: Alanine Aminotransferase 12 U/L (14-59); Albumin Globulin Ratio 1.2; Albumin Level 3.7 g/dL (3.4-5.0); Alkaline Phosphatase 47 U/L (46-116); Anion Gap 12.8; Aspartate Amino Transferase 12 U/L (15-37); BUN Creatinine Ratio 23.3; Bilirubin Total 0.4 mg/dL (0.2-1.0); Calcium 8.9 mg/dL (8.5-10.1); Carbon Dioxide 25.5 mmol/L (21.0-32.0); Chloride 105 mmol/L (98-107); Estimated GFR (African America >60 (>=60 mL/min/1.73m^2); Estimated GFR (Non-African Ame >60 (>=60 mL/min/1.73m^2); Globulin 3.1 g/dL; Glucose 98 mg/dL (74-106); Potassium 3.3 mmol/L (3.5-5.1); Sodium 140 mmol/L (136-145); Total Protein 6.8 g/dL (6.4-8.2)
[2024-09-10 00:18] LABS: Bacteria Urine TRACE #/HPF (NONE SEEN); Cast Seen? NONE SEEN #/LPF (NONE SEEN); Crystals Seen? None Seen #/HPF (None Seen); Mucus Urine MODERATE (NONE SEEN); RBC Urine 0-2 #/HPF (0-2); Squamous Epithelial Cell Urine MODERATE #/LPF (NONE/RARE); Urine Culture Indicated NO; WBC Urine 0-2 #/HPF (NONE SEEN)
--- NOTE | 2024-09-10 00:29 | XR_ITS ---
[address] [address] Patient Name: KEIKO WHITE MRN: [id number] date: 2000 Sex: F Assigned Patient Location: ER Current Patient Location: Accession/Order Number: [id number] Exam Date: 09/10/2024 06:31 Report Date: 09/10/2024 06:33 At the request of: YUNG VALDERRAMA MD Procedure: XR acute abdomen series XR acute abdomen series 09/10/2024 12:44 AM SIGNS AND SYMPTOMS: ^epigastric abd pain PROTOCOL: Frontal radiographs of the chest, abdomen, and pelvis COMPARISON: 05/12/2020 FINDINGS: The trachea is midline. The heart and mediastinal structures are within normal limits. The lung parenchyma is clear. The bony thorax is intact. There is a nonobstructive bowel gas pattern. No radiographic evidence of free air. Vascular calcifications are present in the pelvis. Bony structures are grossly intact. Degenerative changes are noted asymmetrically in the left sacroiliac joint. XR/XR acute abdomen series IMPRESSION: No acute cardiopulmonary pathology. No bowel obstruction or free air. Asymmetric degenerative changes are noted in the left sacroiliac joint. Impression dictated by: Heath Gama M.D. 09/10/2024 6:33 AM Dictation Location: [place] [address] Electronically authenticated by: [id number] Date: 09/10/2024 06:33
[2024-09-10 01:29] VITALS: BP 94/61; PULSE 66; O2SAT 97
== END 2024-09-10 01:37 | disposition home or self-care (01) ==
PROVIDERS: Emergency Provider Emergency Medicine; PCP Nurse Practitioner Family
DX: K29.70 Gastritis, unspecified, without bleeding (principal); F17.290 Nicotine dependence, other tobacco product, uncomplicated
CPT/HCPCS: 36415; 74022; 80053; 81001; 83690; 84703; 85025; 96361; 96374; 96375; 99284; J1885; J3490